=== PATIENT | male | born 1955 | race African-American/Black ===

== ENCOUNTER 2017-06-21 03:02 | Observation (INO) | payer OTHER ==
[~2017-06-21] VITALS: Ht 175.3 cm; Wt 98.9 kg
[~2017-06-21 03:02] MED LIST: AMOXICILLIN500 MG PO; AMOXIL500 MG PO; ASPIRIN EC81 M1 PO; AUGMENTIN 875-1 EACH PO; AUGMENTIN 875875 MG PO; CIPRO500 M1 PO; CIPROFLOXACIN500 MG PO; Ecotrin PO; FLAGYL 25O MG250 M1 PO; FLOMAX0.4 M1 PO; FOSINOPRIL SODI40 M1 PO; GABAPENTIN400 M2 PO; GLIMEPIRIDE4 MG PO; HUMALOG PEN100 U/ML SC; HUMALOG100 UNIT/1 SC; HUMALOG100 UNIT/2 SC; JANUMET 1000 MG1 TAB PO; LANTUS SOL100 UNIT/1 SC; LEVEMIR 10100 UNITS/ SC; LEVEMIR FL100 UNIT/1 SC; LEVEMIR FLEX100 U/ML SC; LEVEMIR100 U/ML SC; LOPRESSOR50 M1 PO; MEROPENEM1 GM IV; METFORMIN HCL1000 M1 PO; METOPROLOL TART50 MG PO; MIRALAX17 GM PO; NOVOLOG100 U/ML SC; PERCOCET 325 MG1 TA2 PO; PRAVASTATIN SOD80 M2 PO; TOPROL XL50 M2 PO; TYLENOL TAB 32325 MG PO; ULTRAM(MONOGRAP50 MG PO; UNASYN 3000MG3000 MG IV; VANCOMYCIN HC1000 MG IV; VITAMIN D1000 IU PO; VITAMIN D2000 UNIT PO
[2017-06-21 08:24] LABS: ABSOLUTE BASOPHIL COUNT 0 /CUMM (0.0-0.2); ABSOLUTE EOSINOPHIL COUNT 0.1 /CUMM (0.0-0.7); ABSOLUTE GRANULOCYTE CT 2.9 /CUMM (1.4-6.5); ABSOLUTE LYMPH COUNT 2.4 /CUMM (1.2-3.4); ABSOLUTE MONOCYTE COUNT 0.4 /CUMM (0.10-0.60); BASOPHIL % 0.5 % (0.0-2.0); EOSINOPHIL % 2.2 % (0-5); GRANULOCYTE % 49.5 % (42.2-75.2); HEMATOCRIT 42.8 % (42-52); MEAN CORPUSCULAR HGB 26.4 PG (27.0-31.0); MEAN CORPUSCULAR HGB CONC 32.6 G/DL (33.0-37.0); MEAN CORPUSCULAR VOLUME 80.8 FL (80.0-94.0); MEAN PLATELET VOLUME 7.3 FL (7.4-10.4); PLATELET COUNT 331 /CUMM (130-400); RBC DISTRIBUTION WIDTH 14.4 % (11.5-14.5); WHITE BLOOD CELL COUNT 5.9 /CUMM (4.8-10.8)
[2017-06-21 17:40] VITALS: BP 176/94
[2017-06-21] MEDS ORDERED: PERCOCET 5-3251 EACH PO (17:43)
--- NOTE | 2017-06-21 17:50 | Patient Discharge Instructions ---
Discharge Instructions General Discharge Information You were seen/treated for: hypercalcemia You had these procedures: right lower parathyroidectomy Watch for these problems: fever greater than 101 increased pain and swelling redness and drainage from wound No bath, but you may shower: Yes Other wound care: ok to remove dressing on 06/23/[address] strips in place, they will eventually fall off on their own keep wound clean and dry l Diet Continue normal diet: Yes Activity Full Activity/No Limits: Yes Activity Self Limited: Yes Acute Coronary Syndrome Inclusion Criteria At DC or during hospital stay patient has or had the following: Discharge Core Measures Meds if any: Prescribed or Continued at Discharge Meds if any: NOT Prescribed or Continued at Discharge Congestive Heart Failure Inclusion Criteria At DC or during hospital stay patient has or had the following: Discharge Core Measures Meds if any: Prescribed or Continued at Discharge Meds if any: NOT Prescribed or Continued at Discharge Cerebrovascular accident Inclusion Criteria At DC or during hospital stay patient has or had the following: Discharge Core Measures Meds if any: Prescribed or Continued at Discharge Meds if any: NOT Prescribed or Continued at Discharge Venous thromboembolism Discharge Core Measures - Per Current guidelines, there needs to be overlap - treatment for the first 5 days of Warfarin therapy. - If discharged on Warfarin prior to 5 days of - overlap therapy, the patient will need to be - assessed for post discharge needs including - *Post discharge parental anticoagulation - *Warfarin and/or parental anticoagulation education - *Follow up date to check INR post discharge Meds if any: Prescribed or Continued at Discharge Note: Overlap Therapy is Warfarin and Anticoagulant Meds if any: NOT Prescribed or Continued at Discharge
[2017-06-21 19:35] VITALS: BP 148/84
--- NOTE | 2017-06-21 21:40 | Admission Core Measures ---
Acute Coronary Syndrome (CM) ACS Core Measures Acute Coronary Syndrome Diagnosis No Congestive Heart Failure (NEW) CHF Core Measures Congestive Heart Failure Diagnosis No Cerebrovascular Accident (NEW) CVA Core Measures CVA/TIA Diagnosis No Venous Thromboembolism VTE Core Mai (View Protocol) VTE Risk Factors Surgery No Mechanical VTE Prophylaxis d/t N/A MechProphylax Ordered No VTE Pharm Prophylaxis d/t NA PharmProphylax ordered Problem List As ranked by this Provider includes Assessment & Plan 1. Hyperparathyroidism HOME MEDS Home Med List Aspirin (Ecotrin*) 81 MG TABLET.DR 1 TAB PO DAILY HEART HEALTH (Reported) Cholecalciferol (Vitamin D3) (Vitamin D) 2,000 UNIT CAPSULE 1 CAP PO DAILY SUPPLEMENT (Reported) Fosinopril Sodium 40 MG TABLET 1 TAB PO DAILY BP (Reported) Gabapentin 400 MG CAPSULE 1 CAP PO TID NERVE PAIN (Reported) Metoprolol Tartrate (Lopressor) 50 MG TABLET 1 TAB PO DAILY HEART/BP ( Reported) Oxycodone HCl/Acetaminophen (Percocet 5-325 MG Tablet) 5 MG-325 MG TABLET 1 TAB PO Q4-6 PRN postop pain Pravastatin Sodium 80 MG TABLET 1 TAB PO DAILY HEART HEALTH (Reported) Tamsulosin HCl (Flomax) 0.4 MG CAP.ER.24H 1 CAP PO DAILY URINARY DIFFICULTY ( Reported)
--- NOTE | 2017-06-21 21:42 | PN- General Surgery ---
Subjective Subjective: Post op check: POD 0, s/p parathyroidectomy, right lower lobe. Patient presently without complaints. States he has some mild throat discomfort. Is able to swallow. Is able to speak. No complaints of headache, blurry vision. No complaints of chest pain, shortness of breath, and difficulty breathing. No nausea or vomitting, tolerating clear liquid diet. Objective Vital Signs and I&Os Vital Signs Date Time Temp Pulse Resp B/P B/P Pulse O2 O2 Flow FiO2 Mean Ox Delivery Rate 06/21 2050 72 162/82 06/21 1935 97.5 63 12 148/84 94 Room Air 06/21 1740 98.0 64 16 176/94 96 Room Air Room Air Intake & Output 06/21 1600 06/21 0800 06/21 0000 06/20 1600 06/20 0806/20 0000 Intake Total Output Total Balance Patient 209 lb Weight Physical Exam: General: Alert and oriented x3, no acute distress Cardiac: RRR, s1s2 Pulm: CTA bialterally Abd: Soft, non-tender, non-distended Extremities: Moves all extremities, distal sensation grossly intact. Chronic nonhealing wound to right foot, stable. Skin warm. Bilateral calves soft and non-tender Surgical site: Neck. Dressing dry and intact. No evidence of hematoma. Trachea midline. No JVD. Neck supple. Voice strong. Swallow intact. Assessment/Plan Assessment/Plan This is a 61 year old male, PMH significant for htn, iddm, cad s/p stents, hyperparathyroidism. He is presently POD 0 s/p RLL parathyroidectomy -Keep trach set at bedside -No post op abx per Dr. Valentino -Continue clear liquid diet for tonight -Insulin sliding scale for coverage -Advance to regular diet as tolerated tomorrow am -po pain medications as needed -resume home meds -Follow labs: Calcium and albumin, next set due at 0100 -Anticipate dc to home tomorrow Will discuss with Dr. Valentino Core Measures Venous Thromboembolism VTE Risk Factors Surgery No Mechanical VTE Prophylaxis d/t N/A MechProphylax Ordered No VTE Pharm Prophylaxis d/t NA PharmProphylax ordered
[2017-06-21 22:30] VITALS: BP 162/82
[2017-06-22] VITALS: BP 140/76
[2017-06-22 04:10] VITALS: BP 140/78
[2017-06-22 08:00] VITALS: BP 114/80
--- NOTE | 2017-06-22 08:28 | PN- General Surgery ---
See Addendum Subjective Subjective: Awake, alert Sitting up eating breakfast Tolerating regular diet - no difficulty swallowing No complaints of headache or blurry vision Pain is well controlled with medication Objective Vital Signs and I&Os Vital Signs Date Time Temp Pulse Resp B/P B/P Pulse O2 O2 Flow FiO2 Mean Ox Delivery Rate 06/22 0410 98.4 70 20 140/78 97 06/22 0000 98.6 73 20 140/76 95 06/21 2230 98.4 72 19 162/82 Room Air 06/21 2050 72 162/82 06/21 1935 97.5 63 12 148/84 94 Room Air 06/21 1740 98.0 64 16 176/94 96 Room Air Room Air Intake & Output 06/22 1600 06/22 0800 06/22 0000 06/21 1600 06/21 0800 06/21 0000 Intake Total 240 240 Output Total 700 Balance 240 -460 Intake, Oral 240 240 Output, Urine 700 Patient 218 lb Weight Weight Bed scale Measurement Method Physical Exam: afebrile, vss General: alert and oriented times three Chest: clear bilaterally, RRR Abd: soft, good bs Neck: soft, supple, nontender, no swelling, good swallow ability, no edema Wd: dressing clean and dry Current Medications: Current Medications Sig/Nathan Start time Last Medication Dose Route Stop Time Status Admin Acetaminophen 650 MG Q6P PRN 06/21 1845 AC PO Aspirin Buffered 81 MG DAILY 06/22 1000 DC PO Aspirin Buffered 81 MG DAILY 06/22 1000 AC PO Cefazolin Sodium 2,000 MG ONCE 06/21 0000 DC IV 06/219 Docusate Sodium 100 MG BID 06/210 AC 06/21 PO 2050 Gabapentin 400 MG TID 06/21 2199 DC PO Hydromorphone HCl 2 MG .STK-MED ONE 06/21 2027 DC IM 06/21 2028 Insulin Human Regular 0 TIDAC/HS 06/21 1700 AC SC Lisinopril 40 MG DAILY 06/22 1000 DC PO Lisinopril 40 MG DAILY 06/21 1900 AC 06/21 PO 2050 Metoprolol Tartrate 50 MG DAILY 06/22 1000 DC PO Metoprolol Tartrate 50 MG DAILY 06/22 1000 AC PO Morphine Sulfate 2 MG Q1P PRN 06/21 1845 AC IV Omeprazole 40 MG DAILY AC 06/22 0700 AC 06/22 PO 0644 Ondansetron HCl 4 MG Q6P PRN 06/21 1845 AC IV Oxycodone/ 1 TAB Q4P PRN 06/21 1845 AC Acetaminophen PO Oxycodone/ 2 TAB Q4P PRN 06/21 1845 AC 06/22 Acetaminophen PO 0645 Pravastatin Sodium 80 MG DAILY 06/22 1000 DC PO Pravastatin Sodium 80 MG DAILY 06/22 1000 AC PO Tamsulosin HCl 0.4 MG DAILY 06/22 1000 DC PO Tamsulosin HCl 0.4 MG DAILY 06/22 1000 AC PO Results Last 48 Hours of Labs: Laboratory Tests 06/22 06/21 06/21 06/21 06/21 0155 1700 1546 1526 1349 Chemistry Calcium (8.4 - 10.2 mg/dL) 10.2 10.1 Albumin (3.5 - 5.0 g/dL) 3.8 3.4 L PTH Intact (18.4 - 80.1 pg/ML) 23.5 109.8 H 179.5 H 06/21 0758 Chemistry PTH Intact (18.4 - 80.1 pg/ML) 125.2 H Hematology CBC w Diff NO MAN DIFF REQ WBC (4.8 - 10.8 /CUMM) 5.9 RBC (4.70 - 6.10 /CUMM) 5.30 Hgb (14.0 - 18.0 G/DL) 14.0 Hct (42 - 52 %) 42.8 MCV (80.0 - 94.0 FL) 80.8 MCH (27.0 - 31.0 PG) 26.4 L MCHC (33.0 - 37.0 G/DL) 32.6 L RDW (11.5 - 14.5 %) 14.4 Plt Count (130 - 400 /CUMM) 331 MPV (7.4 - 10.4 FL) 7.3 L Gran % (42.2 - 75.2 %) 49.5 Lymphocytes % (20.5 - 51.1 %) 40.7 Monocytes % (1.7 - 9.3 %) 7.1 Eosinophils % (0 - 5 %) 2.2 Basophils % (0.0 - 2.0 %) 0.5 Absolute Granulocytes (1.4 - 6.5 /CUMM) 2.9 Absolute Lymphocytes (1.2 - 3.4 /CUMM) 2.4 Absolute Monocytes (0.10 - 0.60 /CUMM) 0.4 Absolute Eosinophils (0.0 - 0.7 /CUMM) 0.1 Absolute Basophils (0.0 - 0.2 /CUMM) 0 Assessment/Plan Assessment/Plan 61yo male pod 1 s/p rll parathyroidectomy labs good overnight follow up 9 am labs tolerating regular diet pain well controlled voiding plan to dc home if labwork ok - follow up with Dr Valentino All questions answered Core Measures Venous Thromboembolism VTE Risk Factors Surgery No Mechanical VTE Prophylaxis d/t N/A MechProphylax Ordered No VTE Pharm Prophylaxis d/t NA PharmProphylax ordered
--- NOTE | 2017-06-22 13:22 | Cons- Podiatry ---
General Information and HPI Consulting Request Date of Consult: 06/22/17 Requested By: Chicho WHATLEY,Quincy James History of Present Illness: Beny is a 61-year-old diabetic well known to me for chronic nonhealing ulcerations to his left and right feet. Of note, the patient also has a history of osteomyelitis requiring digital amputations. The patient is currently admitted for observation status post parathyroidectomy. Patient has no new pedal complaints. Allergies/Medications Allergies: Coded Allergies: NO KNOWN ALLERGIES (UNKNOWN 01/29/17) Home Med List: Aspirin (Ecotrin*) 81 MG TABLET.DR 1 TAB PO DAILY HEART HEALTH (Reported) Cholecalciferol (Vitamin D3) (Vitamin D) 2,000 UNIT CAPSULE 1 CAP PO DAILY SUPPLEMENT (Reported) Fosinopril Sodium 40 MG TABLET 1 TAB PO DAILY BP (Reported) Gabapentin 400 MG CAPSULE 1 CAP PO TID NERVE PAIN (Reported) Insulin Lispro (Humalog) 100 UNIT/ML CARTRIDGE INSULIN PUMP- VGO (Reported) Metoprolol Tartrate (Lopressor) 50 MG TABLET 1 TAB PO DAILY HEART/BP ( Reported) Oxycodone HCl/Acetaminophen (Percocet 5-325 MG Tablet) 5 MG-325 MG TABLET 1 TAB PO Q4-6 PRN postop pain Pravastatin Sodium 80 MG TABLET 1 TAB PO DAILY HEART HEALTH (Reported) Tamsulosin HCl (Flomax) 0.4 MG CAP.ER.24H 1 CAP PO DAILY URINARY DIFFICULTY ( Reported) Past History Medical History Blood Transfusion Hx: No Neurological: peripheral neuropathy EENT: NONE Cardiovascular: CAD (status post stents), hypertension, hyperlipidemia, myocardial infarction, STENTS Respiratory: NONE Gastrointestinal: NONE Hepatic: NONE Renal: NONE Musculoskeletal: osteomyelitis of right 1st, 2nd and 3rd toes OTOEMYLITIS OF L 1ST TOE Psychiatric: NONE Endocrine: diabetes Cancer(s): NONE 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 Home Services at Home: None Smoking Status: Unknown If Ever Smoked Functional Ability ADLs Independent: dressing, eating, toileting, bathing. Ambulation: independent IADLs Independent: shopping, housework, finances, food prep, telephone, transportation , medication admin. Review of Systems Review of Systems: Unremarkable except for a noted history of present illness Exam & Diagnostic Data Vital Signs and I&O Vital Signs Date Time Temp Pulse Resp B/P B/P Pulse O2 O2 Flow FiO2 Mean Ox Delivery Rate 06/22 0844 70 120/78 06/22 0843 70 120/78 06/22 0843 70 120/78 06/22 0800 98.6 67 20 114/80 97 Room Air 06/22 0410 98.4 70 20 140/78 97 / 0000 98.6 73 20 140/76 95 06/21 2230 98.4 72 19 162/82 Room Air 06/21 2051 72 162/82 06/21 1935 97.5 63 12 148/84 94 Room Air 06/21 1740 98.0 64 16 176/94 96 Room Air Room Air Intake & Output 06/22 1600 06/22 0800 06/22 0000 06/21 1600 06/21 0800 06/21 0000 Intake Total 240 240 Output Total 700 Balance 240 -460 Intake, Oral 240 240 Output, Urine 700 Patient 218 lb Weight Weight Bed scale Measurement Method Physical Exam: Dressing right foot clean dry and intact. Pain with deep palpation bilateral lower extremities. No ascending cellulitis identified Assessment/Plan Assessment/Plan Chronic ulceration plantar right foot. Continue with Xeroform and dry sterile dressing. Will follow-up the patient in the wound center as an outpatient. Consult Acknowledgment - Thank you for your consult request. Attending MD Review Statement Attending Statement Attending MD Statement: examined this patient
--- NOTE | 2017-06-22 13:30 | Operative Report ---
Operative/Inv Procedure Report Surgery Date: 06/21/17 Name of Procedure: Excision of right inferior parathyroid adenoma Pre-Operative Diagnosis: Primary hyperparathyroidism Post-Operative Diagnosis: Same Estimated Blood Loss: scant Surgeon/Feeder Worker Power Unit Operator: Chicho WHATLEY,Quincy ARIZA Anesthesia: general endotracheal tube Operative/Procedure Note Note: Patient was placed on the OR table supine, over the thyroid bar, after successful induction of general anesthesia and the timeouts, and setting up the NIMS electrodes for monitoring, the patient's neck from chin to chest were clipped prepped and draped in the usual sterile fashion. A PTH level was drawn at this time. We had already marked a skin crease near the cricoid in Same Day, and then infiltrated local anesthetic and then made this incision with a 15 blade, extending within the medial borders of the sternocleidomastoid muscles, and this incision was slightly off centeri favoring the right. The incision was deepened through the subcutaneous fat and subplatysmal flaps, preserving the underlying anterior jugular veins, were made superiorly to the thyroid cartilage and inferiorly not quite to the sternal notch. The midline was identified between the strap muscles and opened vertically and then using an Allis clamp first, the sternohyoid and then the sternal thyroid muscles were and then retracted laterally to the right, off the thyroid towards the carotid sheath, at this point the dissection was continued using the Harmonic scalpel. At that deep inferior lateral aspect of the lower pole, extent we searched for the parathyroid gland/adenoma I saw a rounded kidney-shaped nodule surrounded by fat, about 2 cm, we gently dissected circumferentially preserving the blood supply, also avoiding the recurrent nerve which was close here, and then before excising we had anesthesia draw another PTH, then we excised it and sent it to pathology, and carlos another level in 10 min. The highest preexcision level was 179.5, then it dropped to 23.5 after, more than 80%, indicating success. So we checked for hemostasis and then closed by first reapproximating the strap muscles over the trachea in the middle paying care not to injure those jugular veins on either side, and then the platysma was reapproximated with a running 3- 0 Vicryl suture as well, then the skin was reapproximated with a running subcuticular 4-0 Biosyn suture followed by Mastisol Steri-Strips Telfa and Tegaderm. Estimated blood loss was minimal lap and sponge counts were correct wound expectancy was clean, IV fluids crystalloid, complications none, patient tolerated the procedure well was awakened extubated and returned to the recovery room in satisfactory condition where once more awake, was able to phonate without any significant hoarseness.
[2017-06-22 14:26] VITALS: BP 110/72
== END 2017-06-22 14:10 ==
LOC: STS 03:02 → PACUH 16:32 → 2NB 16:32 → ENRESERV 17:04 → 2NB 18:21 → ENPENDDIS 06-22 11:26 → 2NB 06-22 14:10
PROVIDERS: Surgery
DX: D35.1 Benign neoplasm of parathyroid gland (principal); E21.0 Primary hyperparathyroidism; E11.42 Type 2 diabetes mellitus with diabetic polyneuropathy; E11.65 Type 2 diabetes mellitus with hyperglycemia; Z79.4 Long term (current) use of insulin; I10 Essential (primary) hypertension; E78.00 Pure hypercholesterolemia, unspecified; I25.2 Old myocardial infarction; Z87.891 Personal history of nicotine dependence; Z79.82 Long term (current) use of aspirin; Z89.412 Acquired absence of left great toe; Z89.411 Acquired absence of right great toe
CPT/HCPCS: 6040; 36415; 93005; 93010; G0378; J0131; J0690; J1815; J2250; J2405

== ENCOUNTER 2017-07-29 13:23 | Inpatient (IN) | payer OTHER ==
[~2017-07-29] VITALS: Ht 175.3 cm; Wt 98.5 kg
[~2017-07-29 13:23] MED LIST changes: +PERCOCET 5-3251 EACH PO
[2017-07-29 14:15] LABS: ABSOLUTE BASOPHIL COUNT 0 /CUMM (0.0-0.2); ABSOLUTE EOSINOPHIL COUNT 0.1 /CUMM (0.0-0.7); ABSOLUTE GRANULOCYTE CT 5.5 /CUMM (1.4-6.5); ABSOLUTE LYMPH COUNT 2.6 /CUMM (1.2-3.4); ABSOLUTE MONOCYTE COUNT 0.8 /CUMM (0.10-0.60); BASOPHIL % 0.3 % (0.0-2.0); EOSINOPHIL % 1.4 % (0-5); GRANULOCYTE % 60.6 % (42.2-75.2); HEMATOCRIT 42.3 % (42-52); MEAN CORPUSCULAR HGB 26.5 PG (27.0-31.0); MEAN CORPUSCULAR HGB CONC 32.9 G/DL (33.0-37.0); MEAN CORPUSCULAR VOLUME 80.5 FL (80.0-94.0); MEAN PLATELET VOLUME 6.7 FL (7.4-10.4); PLATELET COUNT 507 /CUMM (130-400); RBC DISTRIBUTION WIDTH 13.4 % (11.5-14.5); RED BLOOD CELL CT 5.26 /CUMM (4.70-6.10)
[2017-07-29 14:17] LABS: PT 14.1 SEC (9.4-12.5)
--- NOTE | 2017-07-29 15:43 | RADIOLOGY REPORT ---
EXAMINATION: XR FOOT, LEFT CLINICAL INFORMATION: Osteomyelitis left foot. COMPARISON: 02/02/2017 TECHNIQUE: 2 views of the left foot. FINDINGS: Postsurgical changes from prior amputation of the 1st ray at the level of the mid 1st metatarsal. There is dressing overlying the 2nd and 3rd digits. Soft tissue swelling of the 2nd digit, with foci of lucency within the soft tissues suggesting air. There is apparent irregularity of the tip of the 2nd distal phalanx, as seen on the lateral projection, which may be related to overlapping densities, or represent osteomyelitis. No definite air is identified in the soft tissues of the 3rd digit. More proximally, no acute findings are seen. Dorsal spurring at the talonavicular joint. IMPRESSION: 1. Soft tissue dressing overlying the 2nd and 3rd digits limiting evaluation. 2. Soft tissue swelling of the 2nd digit, with the lucencies suggesting air in the soft tissues. Apparent irregularity of the tip of the 2nd distal phalanx, which could be related to osteomyelitis or could be related to overlapping densities. Further evaluation with MRI as clinically warranted.
--- NOTE | 2017-07-29 16:38 | ED ANKLE/FOOT INJURY COMPLAINT ---
History of Present Illness General Chief Complaint: General Adult Stated Complaint: SIB DR VALERIO, INFECTION TO LEFT FOOT Source: patient, family, old records, dr duque Exam Limitations: no limitations Vital Signs & Intake/Output Vital Signs & Intake/Output Vital Signs Date Time Temp Pulse Resp B/P B/P Pulse O2 O2 Flow FiO2 Mean Ox Delivery Rate 07/30 0827 136/86 07/30 0826 60 136/86 07/29 2250 136/86 07/29 2249 136/86 07/29 2032 97.8 60 16 136/86 97 Room Air 07/29 2024 Room Air 07/29 1711 97.2 65 18 117/62 99 Room Air 07/29 1710 9 Room Air 07/29 1332 96.2 70 18 145/62 95 Room Air ED Intake and Output 07/30 0000 07/29 1200 Intake Total 240 Output Total Balance 240 Intake, Oral 240 Patient 216 lb Weight Weight Reported by Patient Measurement Method Allergies Coded Allergies: NO KNOWN ALLERGIES (UNKNOWN 01/29/17) Reconcile Medications Aspirin (Ecotrin*) 81 MG TABLET.DR 1 TAB PO DAILY HEART HEALTH (Reported) Cholecalciferol (Vitamin D3) (Vitamin D) 2,000 UNIT CAPSULE 1 CAP PO DAILY SUPPLEMENT (Reported) Fosinopril Sodium 40 MG TABLET 1 TAB PO DAILY BP (Reported) Gabapentin 400 MG CAPSULE 1 CAP PO TID NERVE PAIN (Reported) Insulin Lispro (Humalog) 100 UNIT/ML CARTRIDGE INSULIN PUMP- VGO (Reported) Metoprolol Tartrate (Lopressor) 50 MG TABLET 1 TAB PO DAILY HEART/BP ( Reported) Oxycodone HCl/Acetaminophen (Percocet 5-325 MG Tablet) 5 MG-325 MG TABLET 1 TAB PO Q4-6 PRN postop pain Pravastatin Sodium 80 MG TABLET 1 TAB PO DAILY HEART HEALTH (Reported) Tamsulosin HCl (Flomax) 0.4 MG CAP.ER.24H 1 CAP PO DAILY URINARY DIFFICULTY ( Reported) Triage Note: 61 Y/O MALE STATES DR DUQUE SENT HIM TO ED FOR SURGERY: AMPUTATION OF LEFT 2ND TOE. PT REPORTS "IT HAS BEEN INFECTED ALL WEEK". C/O "FEVER AND CHILLS". DRESSING IN PLACE FROM WOUND CENTER. PT REPORTS LAST PO INTAKE 0800 TODAY - "2 EGGS AND TEA". Triage Nurses Notes Reviewed? yes Occurred: last week Duration: week(s): (1), constant Timing: recent history Severity: moderate Severity Numbers: 5 Pain/Injury Location: Left: 2nd toe. Method of Injury: twisted No Modifying Factors: none Associated Symptoms: swelling, redness, discharge HPI: 61-year-old male with history of poorly controlled diabetes coronary artery disease presents sent in by a wallpaper hanger helper Dr. Duque for evaluation and admission for osteomyelitis of the left foot. Patient reports subjective subjective fever chills for the past 1 week worsening pain to his foot. He was being treated for an ulcer to that toe area denies any new injury or trauma. He was sent in for amputation of that toe. He has a history of osteomalacia is in the past of both feet requiring previous dictations No nausea no vomiting (Oliver Flores) Past History Travel History Traveled to [place] past 21 day No Medical History Any Pertinent Medical History? 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 No (Oliver Flores) Review of Systems Review of Systems Constitutional: Reports: see HPI. Comments Review of systems: See HPI, All other systems negative. Constitutional, chills , fever, HEENT: no sore throat no congestion Cardiovascular: No chest pain , Skin: no rashes, no change in skin Respiratory: No dyspnea no cough no sputum GI: No nausea no vomiting, no diarrhea, : No dysuria Muscle skeletal: No joint pain, no back pain Neurologic: , no headache Heme/endocrine: No bruising (Oliver Flores) Physical Exam Physical Exam General Appearance: well developed/nourished, alert, awake Leg/Knee/Thigh Left: normal range of motion Comments: Well-developed well-nourished patient in no apparent distress. HEENT: Atraumatic, extraocular motion intact Neck: Supple, FROM Back: FROM Cardiovascular: Regular rate and rhythms no murmur Respiratory: No respiratory distress. Patient speaking in full complete sentences. Breath sounds clear to auscultation bilaterally: NO W/R/R Extremities: Dressing in place of the left foot, the rest of the foot and leg are atraumatic no edema, full range of motion Neuro: awake, alert, and oriented to person, place and time. There were no obvious focal neurologic abnormalities. Skin: Warm & dry;No appreciable rash on exposed skin Psych: Mood affect normal, normal memory normal judgment. (Theresa ARIZA,Oliver) Progress Differential Diagnosis: cellulitis, gout, fracture, dislocation, sprain, contusion, compartmental syndrome, osteomyeltisis Plan of Care: Orders Procedure Date/time Status BASIC ELECTROLYTES PLUS BUN&CR 07/31 0600 Active Consistent Carbohydrate 2 07/30 L Active Consistent Carbohydrate 3 07/30 B Complete Change service to 07/30 0910 Active Change service to 07/30 0852 Active CBC WITHOUT DIFFERENTIAL 07/30 0600 Complete BASIC ELECTROLYTES PLUS BUN&CR 07/30 0600 Complete Consistent Carbohydrate 2 07/29 D Complete Weight 07/29 2018 Active Vital Signs 07/29 2018 Active Teach/Educate 07/29 2017 Active Pain Treatment and Response 07/29 2017 Active Nutritional Intake, Monitor 07/29 2017 Active Isolation 07/29 2018 Active Intake & Output 07/29 2018 Active Patient Care Conference 07/29 2018 Active Activity/Ambulation 07/29 2018 Active PT Evaluate & Treat 07/29 1843 Active Pathway - chart 07/29 1843 Active House Staff 07/29 1843 Active Code Status 07/29 1843 Active EXTREMETIES OR SPEC 07/29 1806 Active Patient Data 07/29 1750 Active Lab Add-on Test 07/29 1744 Active ED Holding Orders 07/29 1706 Active Admit to inpatient 07/29 1706 Active Vital Signs 07/29 1706 Active Code Status 07/29 1706 Complete Admit to inpatient 07/29 1705 Active Intake & Output 07/29 1658 Active Saline Lock 07/29 1345 Active PROTHROMBIN TIME 07/29 1345 Complete COMPREHENSIVE METABOLIC PANEL 07/29 1345 Complete CBC WITHOUT DIFFERENTIAL 07/29 1345 Complete EKG 07/29 1345 Active TYPE & SCREEN (NOT X-MATCH) 07/29 1345 Complete FingerStick- Glucose 07/29 UNK Active Current Medications Sig/Nathan Start time Last Medication Dose Stop Time Status Admin Pravastatin Sodium 80 MG 1700 07/30 1700 AC (Pravachol) Insulin Detemir 20 UNITS BID 07/30 1000 AC (Levemir) Insulin Aspart 0 TIDAC 07/30 0800 AC 07/30 (NovoLOG) 0827 Ampicillin Sodium/ 1,500 MG Q6 07/29 2359 AC 07/30 Sulbactam Sodium 0515 (Unasyn) Sodium Chloride 100 ML (Normal Saline 0.9%) Insulin Aspart 0 AT BEDTIME 07/29 2245 AC 07/29 (NovoLOG) 2243 Heparin Sodium 5,000 UNIT Q8 07/29 2200 AC 07/30 (Porcine) 0515 Metoprolol Tartrate 50 MG DAILY 07/30 1999 AC 07/30 (Lopressor) 0826 Acetaminophen 650 MG Q4P PRN 07/29 1915 AC (Tylenol) Aspirin Buffered 81 MG DAILY 07/29 1900 AC 07/30 (Ecotrin) 0827 Gabapentin 400 MG TID 07/29 190 AC 07/30 (Neurontin) 0827 Tamsulosin HCl 0.4 MG DAILY 07/29 1900 AC 07/30 (Flomax) 0827 Oxycodone/ 1 TAB Q4-6 PRN 07/29 1845 AC Acetaminophen (Percocet) Laboratory Tests 07/30/17 0555: Anion Gap 10, Estimated GFR > 60, BUN/Creatinine Ratio 21.7, CBC w Diff NO MAN DIFF REQ, RBC 4.62 L, MCV 80.6, MCH 26.5 L, MCHC 32.8 L, RDW 13.2, MPV 7.3 L , Gran % 58.2, Lymphocytes % 31.0, Monocytes % 9.2, Eosinophils % 1.2, Basophils % 0.4, Absolute Granulocytes 4.4, Absolute Lymphocytes 2.4, Absolute Monocytes 0.7 H, Absolute Eosinophils 0.1, Absolute Basophils 0 07/29/17 1355: Anion Gap 15, Estimated GFR 48 L, BUN/Creatinine Ratio 18.7, Glucose 149 H, Calcium 9.9, Total Bilirubin 0.4, AST 11 L, ALT 19 L, Alkaline Phosphatase 96, Total Protein 8.6 H, Albumin 4.2, Globulin 4.4 H, Albumin/Globulin Ratio 1.0 L, PT 14.1 H, INR 1.29 H, CBC w Diff NO MAN DIFF REQ, RBC 5.26, MCV 80.5, MCH 26.5 L, MCHC 32.9 L, RDW 13.4, MPV 6.7 L, Gran % 60.6, Lymphocytes % 28.7, Monocytes % 9.0, Eosinophils % 1.4, Basophils % 0.3, Absolute Granulocytes 5.5, Absolute Lymphocytes 2.6, Absolute Monocytes 0.8 H, Absolute Eosinophils 0.1, Absolute Basophils 0 Microbiology 07/29 1805 EXTREMITIE: Gross Specimen Examination - RECD 07/29 1805 EXTREMITIE: Gram Stain - RECD XRAY AND LABS ORDERED FROM TRIAGE I [facility] WITH DR DUQUE- WHO IS WAITING TO TAKE HIM TO THE OR ( PT WAS IN THE WAITING ROOM) WHEN HE CALLED. I BROUGHT HIM, BACK, HE WOULD LIKE THE PT ADMITTED TO THE MEDICINE TEAM I D/W THE PT AND FAMILY HIS LABS AND XRAY FINDINGS. THEY ARE AWARE OF PLAN TO THE PATIENT: NATHAN MOLINA PRESENT AGE: 61 PATIENT ACCOUNT NO: [id number] : 59 LOCATION: [facility] ORDERING PHYSICIAN: Brien Sommer DO SERVICE DATE: 07/29/17 EXAM TYPE: RAD - XRY-FOOT TWO VIEWS, LEFT EXAMINATION: XR FOOT, LEFT CLINICAL INFORMATION: Osteomyelitis left foot. COMPARISON: 02/02/2017 TECHNIQUE: 2 views of the left foot. FINDINGS: Postsurgical changes from prior amputation of the 1st ray at the level of the mid 1st metatarsal. There is dressing overlying the 2nd and 3rd digits. Soft tissue swelling of the 2nd digit, with foci of lucency within the soft tissues suggesting air. There is apparent irregularity of the tip of the 2nd distal phalanx, as seen on the lateral projection, which may be related to overlapping densities, or represent osteomyelitis. No definite air is identified in the soft tissues of the 3rd digit. More proximally, no acute findings are seen. Dorsal spurring at the talonavicular joint. IMPRESSION: 1. Soft tissue dressing overlying the 2nd and 3rd digits limiting evaluation. 2. Soft tissue swelling of the 2nd digit, with the lucencies suggesting air in the soft tissues. Apparent irregularity of the tip of the 2nd distal phalanx, which could be related to osteomyelitis or could be related to overlapping densities. Further evaluation with MRI as clinically warranted. DICTATED BY: Jose Alejandro Maxwell MD DATE/TIME DICTATED:07/29/171453 RAIL CAR PAINTER/SANDBLASTER:[id number] DATE/TIME TRANSCRIBED:07/29/171453 CONFIDENTIAL, DO NOT COPY WITHOUT APPROPRIATE AUTHORIZATION. <Electronically signed in Other Vendor System> SIGNED BY: Jose Alejandro Maxwell MD [id number] Diagnostic Imaging: Viewed by Me: Radiology Read. Discussed w/RAD: Radiology Read. Initial ED EKG: NSR AT 70, 1ST DEGREE BLOCK, NO ACUTE ST SEG CHANGES, NORMAL AXIS Prior EKG: unchanged (Oliver Flores) Departure Departure Time of Disposition: 1655 Disposition: STILL A PATIENT Condition: Stable Clinical Impression Primary Impression: Osteomyelitis Referrals: Patient Has No Primary Care Dr (PCP/Family) Departure Forms: Customer Survey General Discharge Information Admission Note Spoke With: Rangel Del Toro MD Documentation of Exam: Documentation of any treatments & extenuating circumstances including Concerns Regarding Discharge (functional status, medication knowledge or non-compliance, living conditions, etc.) that warrant an admission rather than observation: PODIATRY CONSULT, ID CONSULT, TREND LABS AND CULTURES, IV ABX,PREMATURE DISCHARGE WOULD BEMEDICALLY HARMFUL (Oliver Flores) PA/PUBLIC SPEAKING PROFESSOR Co-Sign Statement Statement: ED Attending supervision documentation- [] I saw and evaluated the patient. I have also reviewed all the pertinent lab results and diagnostic results. I agree with the findings and the plan of care as documented in the PA's/PUBLIC SPEAKING PROFESSOR's documentation. [X] I have reviewed the ED Record and agree with the PA's/PUBLIC SPEAKING PROFESSOR's documentation. [] Additions or exceptions (if any) to the PAs/PUBLIC SPEAKING PROFESSOR's note and plan are summarized below: [] (Elizabeth WHATLEY,Destinee)
--- NOTE | 2017-07-29 17:08 | History & Physical ---
Jose WHATLEY,[facility] 07/29/17 1398: General Information and HPI History of Present Illness: Mr. Mathis is a 61-year-old male with past medical history of coronary artery disease status post DC and stents in [address] 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 Morocho, and primary hyperparathyroidism who presents with a left foot infection. The patient is followed by Dr. Mcdonough for his foot care. A week ago , he went to Dr. Mcdonough because he was having pain in his left foot. Dr. Mcdonough took the nail off and found an abscess. He was prescribed amoxicillin and has taken the antibiotic. His symptoms have progressed to having fever, chills, and night sweats. He then had a scheduled appointment today with Dr. Mcdonough who sent him to the ER for surgery. Patient denies any chest pain, shortness of breath, trace of breath on exertion climbing stairs, abdominal pain , nausea, vomiting, diarrhea, or dysuria. Patient is a former smoker and denies alcohol or recreational drug use. Allergies/Medications Allergies: Coded Allergies: NO KNOWN ALLERGIES (UNKNOWN 01/29/17) Home Med list Aspirin (Ecotrin*) 81 MG TABLET.DR 1 TAB PO DAILY HEART HEALTH (Reported) Cholecalciferol (Vitamin D3) (Vitamin D) 2,000 UNIT CAPSULE 1 CAP PO DAILY SUPPLEMENT (Reported) Fosinopril Sodium 40 MG TABLET 1 TAB PO DAILY BP (Reported) Gabapentin 400 MG CAPSULE 1 CAP PO TID NERVE PAIN (Reported) Insulin Lispro (Humalog) 100 UNIT/ML CARTRIDGE INSULIN PUMP- VGO (Reported) Metoprolol Tartrate (Lopressor) 50 MG TABLET 1 TAB PO DAILY HEART/BP ( Reported) Oxycodone HCl/Acetaminophen (Percocet 5-325 MG Tablet) 5 MG-325 MG TABLET 1 TAB PO Q4-6 PRN postop pain Pravastatin Sodium 80 MG TABLET 1 TAB PO DAILY HEART HEALTH (Reported) Tamsulosin HCl (Flomax) 0.4 MG CAP.ER.24H 1 CAP PO DAILY URINARY DIFFICULTY ( Reported) Past History Travel History Traveled to [place] past 21 day No Medical History Neurological: peripheral neuropathy EENT: NONE Cardiovascular: CAD (status post stents), hypertension, hyperlipidemia, myocardial infarction, STENTS Respiratory: NONE Gastrointestinal: NONE Hepatic: NONE Renal: NONE Musculoskeletal: osteomyelitis of right 1st, 2nd and 3rd toes OTOEMYLITIS OF L 1ST TOE Psychiatric: NONE Endocrine: diabetes Cancer(s): NONE 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 Ambulation: independent IADLs Independent: shopping, housework, finances, food prep, telephone, transportation , medication admin. Review of Systems Review of Systems Constitutional: Reports: no symptoms. EENTM: Reports: no symptoms. Cardiovascular: Reports: no symptoms. Respiratory: Reports: no symptoms. GI: Reports: no symptoms. Genitourinary: Reports: no symptoms. Musculoskeletal: Reports: see HPI. Skin: Reports: no symptoms. Neurological/Psychological: Reports: no symptoms. Hematologic/Endocrine: Reports: no symptoms. Immunologic/Allergic: Reports: no symptoms. All Other Systems: Reviewed and Negative Exam & Diagnostic Data Last 24 Hrs of Vital Signs/I&O Vital Signs Date Time Temp Pulse Resp B/P B/P Pulse O2 O2 Flow FiO2 Mean Ox Delivery Rate 07/29 1711 97.2 65 18 117/62 99 Room Air 07/29 1710 9 Room Air 07/29 1332 96.2 70 18 145/62 95 Room Air Intake & Output 07/29 1600 07/29 0800 07/29 0000 Intake Total Output Total Balance Patient 97.976 kg Weight Weight Reported by Patient Measurement Method Physical Exam General Appearance Alert, Oriented X3, Cooperative, No Acute Distress HEENT Atraumatic, PERRLA Cardiovascular Regular Rate, Normal S1, Normal S2 Lungs Clear to Auscultation Abdomen Normal Bowel Sounds, Soft, No Tenderness Extremities Left foot wrapped, exam deferred. Last 24 Hrs of Labs/[place]: Laboratory Tests 07/29/17 1355: Anion Gap 15, Estimated GFR 48 L, BUN/Creatinine Ratio 18.7, Glucose 149 H, Calcium 9.9, Total Bilirubin 0.4, AST 11 L, ALT 19 L, Alkaline Phosphatase 96, Total Protein 8.6 H, Albumin 4.2, Globulin 4.4 H, Albumin/Globulin Ratio 1.0 L, PT 14.1 H, INR 1.29 H, CBC w Diff NO MAN DIFF REQ, RBC 5.26, MCV 80.5, MCH 26.5 L, MCHC 32.9 L, RDW 13.4, MPV 6.7 L, Gran % 60.6, Lymphocytes % 28.7, Monocytes % 9.0, Eosinophils % 1.4, Basophils % 0.3, Absolute Granulocytes 5.5, Absolute Lymphocytes 2.6, Absolute Monocytes 0.8 H, Absolute Eosinophils 0.1, Absolute Basophils 0 Assessment/Plan Assessment: Mr. Mathis is a 61-year-old male with past medical history of coronary artery disease status post DC and stents in [address] 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 Morocho, and primary hyperparathyroidism who presents with a left foot infection. On presentation, vital signs were T 96.2, HR 70, RR 18, BP 145/60, saturating 95 % on room air. Laboratories were significant for platelets 507, BUN 28, creatinine 1.5 (baseline 1.7). Foot x-ray showed a soft tissue swelling of the second digit lucency suggesting air in the soft tissues which could be related to osteomyelitis. He will be admitted to general medicine and treated for the following problems: 1. Diabetic foot infection with possible osteomyelitis 2. Thrombocytosis #Diabetic foot infection with wet gangrene and possible osteomyelitis: The patient was sent in by Dr. Mcdonough for surgery related to his diabetic foot infection. X-ray shows possible bone involvement. He is going to the OR [facility] for open partial ray resection left foot. RCRI score 2, 6.6% risk of major cardiac event. -Follow-up postoperative note for Dr. Mcdonough -ESR and CRP -Follow cultures -Follow antibiotics per Dr. Mcdonough #Thrombocytosis: Likely reactive -Continue to monitor #Chronic medical problems: -Hold insulin pump, consult endocrinology -Detemir plus ISS -Continue home medications DVT prophylaxis with heparin Consistent carbohydrate 1 diet Full code As Ranked By This Provider Problem List: 1. Osteomyelitis Core Measures/Misc (02/03) Acute Coronary Syndrome ACS Diagnosis: No Congestive Heart Failure Congestive Heart Failure Diagnosis No Cerebrovascular Accident CVA/TIA Diagnosis: No VTE (View Protocol) VTE Risk Factors Age>40 No Mechanical VTE Prophylaxis d/t N/A MechProphylax Ordered No VTE Pharm Prophylaxis d/t NA PharmProphylax ordered Sepsis (View protocol) Sepsis Present: No Rangel Del Toro MD 07/29/17 2011: Attending MD Review Statement Attending Statement Attending MD Statement: examined this patient, discuss w/resident/PA/CORN SHELLER, agreed w/resident/PA/CORN SHELLER, discussed with family, reviewed EMR data (avail), reviewed images, amended to note Attending Assessment/Plan: The patient is a 61 yo male with h/o poorly controlled DM (Hgb A1C 13.3% 06/06) with diabetic neuropathy and ?nephropathy, h/o primary hyperparathyroidism (s/p parathyroidectomy 2017), h/o CAD (?IWMI and stents in 2002 at [facility] in [place]), and BPH who presented in the ED sent for admission by Dr. Mcdonough with a left foot infection. He had been seen 1 week ago and had nail removal and an abscess was noted. He had been placed on oral antibiotics (?Amoxicillin). Infection had progressed and Dr. Mcdonough wishes to take the patient to the OR this evening (suspected osteomyelitis/gangrene). The patient denied fever, chest pain, dyspnea, etc. Had recent negative pharmacologic stress with Dr. Cifuentes ( 07/07) and normal ECHO. He has been followed by Dr. Francis for endocrinology (has insulin pump). He does have a h/o osteomyelitis of both feet requiring digit amputations in the past and is known to Dr. Pfeiffer. Physical Exam: VS: T 97.2, P 70, R 18, BP 145/62-117/62, PO 99% RA HEENT: eyes- PERRLA, EOMI mirlande- moist mucosa w/o lesions Neck: no JVD/bruits Chest: clear Cor: RRR nl S1, S2 w/o murm Abd: BS+, soft, NT, - HSM Ext: S[place] grade 3 ulceration of the left 2nd toe with cellulitis extending 3 cm proximal to the matatarsophalangeal joint with foul smelling discharge- no fluctuance/crepitus (per Dr. Mcdonough exam). Pulses severely diminished bilaterally. Labs- as above Impression/Plan: #Osteomyelitis/Gangrene - left 2nd toe/foot as above. In patient with known PVD/ diabetic neuropathy. Has had prior digit amputations of both feet in past. No fever/chills, etc. Plan: Admit to general medicine- to OR tonight with Dr. Mcdonough for ray amputation. Intraoperative cultures to be obtained. Will start broad spectrum antibiotics per Dr. Mcdonough (Dr. Pfeiffer made aware patient is here) Will need arterial US LE in morning- ID and Vascular consults. #CAD- h/o DC/stents in distant past (2002). No cardiac symptoms (no CP/WHITMORE) and had recent negative pharmacologic stress test with Dr. Cifuentes. Normal EF on ECHO. RCRI is 2=6.6% perioperative risk. Plan: Medically stable for planned surgery. Continue Metoprolol/etc. #DM- as above, poorly controlled based on prior Hgb A1C. Followed by Dr. Francis and on insulin pump at present. Plan: D/C pump as per hospital protocol- Dr. Francis to advise regarding insulin dosing. Follow glucoscans. #CKD- note elevated Cr which has been noted over last year. Most likely related to diabetic nephropathy. Is also on Fosinopril. Plan: Will check OP records. Avoid nephrotoxins/dye. #HL- On Pravastatin. Plan: Continue statin. #BPH- on Tamsulosin. Plan: Continue Tamsulosin. #Chronic Pain/Diabetic Neuropathy- on gabapentin. Plan: Continue Gabapentin and Percocet prn for pain.
--- NOTE | 2017-07-29 17:30 | History & Physical Pre-Op ---
General Information and HPI History of Present Illness: Beny is a 61-year-old male with an extensive past medical history, including poorly controlled diabetes who presented to the wound care center today complaining of pain and swelling to his left foot and fever and chills beginning the end of last week and over this weekend. The patient also admits to feeling general malaise. The patient has a history of osteomyelitis to both the left and right feet, requiring digital amputations and prolonged courses of IV antibiotics. Allergies/Medications Allergies: Coded Allergies: NO KNOWN ALLERGIES (UNKNOWN 01/29/17) Home Med list Aspirin (Ecotrin*) 81 MG TABLET.DR 1 TAB PO DAILY HEART HEALTH (Reported) Cholecalciferol (Vitamin D3) (Vitamin D) 2,000 UNIT CAPSULE 1 CAP PO DAILY SUPPLEMENT (Reported) Fosinopril Sodium 40 MG TABLET 1 TAB PO DAILY BP (Reported) Gabapentin 400 MG CAPSULE 1 CAP PO TID NERVE PAIN (Reported) Insulin Lispro (Humalog) 100 UNIT/ML CARTRIDGE INSULIN PUMP- VGO (Reported) Metoprolol Tartrate (Lopressor) 50 MG TABLET 1 TAB PO DAILY HEART/BP ( Reported) Oxycodone HCl/Acetaminophen (Percocet 5-325 MG Tablet) 5 MG-325 MG TABLET 1 TAB PO Q4-6 PRN postop pain Pravastatin Sodium 80 MG TABLET 1 TAB PO DAILY HEART HEALTH (Reported) Tamsulosin HCl (Flomax) 0.4 MG CAP.ER.24H 1 CAP PO DAILY URINARY DIFFICULTY ( Reported) Past History Medical History Neurological: peripheral neuropathy EENT: NONE Cardiovascular: CAD (status post stents), hypertension, hyperlipidemia, myocardial infarction, STENTS Respiratory: NONE Gastrointestinal: NONE Hepatic: NONE Renal: NONE Musculoskeletal: osteomyelitis of right 1st, 2nd and 3rd toes OTOEMYLITIS OF L 1ST TOE Psychiatric: NONE Endocrine: diabetes Cancer(s): NONE 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 Ambulation: independent IADLs Independent: shopping, housework, finances, food prep, telephone, transportation , medication admin. Review of Systems Review of Systems: Unremarkable except for that noted tissue present illness Exam & Diagnostic Data Last 24 Hrs of Vital Signs/I&O Vital Signs Date Time Temp Pulse Resp B/P B/P Pulse O2 O2 Flow FiO2 Mean Ox Delivery Rate 07/29 1711 97.2 65 18 117/62 99 Room Air 07/29 1710 9 Room Air 07/29 1332 96.2 70 18 145/62 95 Room Air Intake & Output 07/29 1600 07/29 0800 07/29 0000 Intake Total Output Total Balance Patient 216 lb Weight Weight Reported by Patient Measurement Method Physical Exam: Sotelo grade 3 ulceration noted to the left second digit with cellulitis extending 3 cm proximal to the metatarsophalangeal joint. There is probing identified distally with foul smelling discharge no fluctuance or crepitus identified dorsally. Assessment/Plan Assessment/Plan: Gangrene left foot with likely underlying osteomyelitis. Patient will require an open partial ray resection left foot followed by admission to the floor for broad-spectrum IV antibiotics, which can then the talar pending the cultures and sensitivities. As Ranked By This Provider Problem List: 1. Other acute osteomyelitis, left ankle and foot Attending MD Review Statement Attending Statement Attending MD Statement: examined this patient
--- NOTE | 2017-07-29 18:30 | Operative Report ---
Operative/Inv Procedure Report Surgery Date: 07/29/17 Name of Procedure: 1 open incision and drainage deep to the D fashion with exposure of the extensor and flexor tendon and tendon sheath multiple sites left foot 2 amputation second digit left foot 3 intraoperative administration of ankle block anesthesia 4 excisional debridement Pre-Operative Diagnosis: 1 gangrene left second digit 2 osteomyelitis left second digit 3 diabetic peripheral neuropathy Post-Operative Diagnosis: The same Estimated Blood Loss: less than 50ml Surgeon/Per Diem: ELINA DICKERSON DPM Anesthesia: moderate sedation, block Operative/Procedure Note Note: After obtaining informed consent the patient was brought to the operating room and placed on the operating table in the supine position. The patient isn't securely fastened to the operating table utilizing safety belt. After administration of IV sedation, 10 mL of 0.5% Marcaine plain was infiltrated about the patient's left ankle. The left foot and ankle then scrubbed prepped and draped in usual aseptic manner. Attention directed left foot, where a large full-thickness necrotic was identified. A 15 blades utilized sharply revised skin margins. Dissection was then carried down deep to the deep fascia with exposure of the extensor and flexor tendon tension multiple sites left foot. All necrotic nonviable infected tissue sharply evacuated from the wound bed. It was then carried proximally to the capture ligamentous structures at the metatarsophalangeal joint which resection. The digit was then disarticulated and passed from the operative field. Specimen was sent for both microbiologic and pathologic inspection. Nipple was then irrigated 3 L of normal sterile saline infusion 50,000 units of bacitracin. Following this, the foot was redraped and the surgeon's top was changed clean gloves. Any bleeding vessels identified were cauterized or ligated as encountered. Nipple was then packed with half-inch iodoform and 3-0 nylon retention sutures were placed. Foot was then dressed with 4 x 4's Kerlix and Abraham wrap. Patient is noted tolerate both procedure and anesthesia well and the patient was transported from the operating room to recovery with vital signs stable.
[2017-07-29 20:33] VITALS: BP 136/86
--- NOTE | 2017-07-30 07:52 | PN- Housestaff ---
Jose Elias Ricci 07/30/17 0752: Subjective Follow-up For: 1 gangrene left second digit s/p excisional debridement POD 1 2 osteomyelitis left second digit 3 diabetic peripheral neuropathy 4 Uncontrolled diabetes Subjective: No complaint or acute events overnight Fingerstick glucose 255 - 285 Review of Systems Constitutional: Reports: see HPI. Objective Last 24 Hrs of Vital Signs/I&O Vital Signs Date Time Temp Pulse Resp B/P B/P Pulse O2 O2 Flow FiO2 Mean Ox Delivery Rate 07/30 0827 136/86 07/30 0826 60 136/86 07/29 2250 136/86 07/29 2249 136/86 07/29 2033 97.8 60 16 136/86 97 Room Air 07/29 2024 Room Air 07/29 1711 97.2 65 18 117/62 99 Room Air 07/29 1710 9 Room Air 07/29 1332 96.2 70 18 145/62 95 Room Air Intake & Output 07/30 1600 07/30 0800 07/30 0000 Intake Total 440 240 Output Total 650 Balance -210 240 Intake, IV 200 Intake, Oral 240 240 Output, Urine 650 Patient 214 lb 216 lb Weight Weight Bed scale Reported by Patient Measurement Method Physical Exam General Appearance: Alert, Oriented X3, Cooperative, No Acute Distress Cardiovascular: Regular Rate, Normal S1, Normal S2 Lungs: Clear to Auscultation, Normal Air Movement Abdomen: Normal Bowel Sounds, Soft, No Tenderness Extremities: L foot with serosanguinous drainage Current Medications: Current Medications Sig/Nathan Start time Last Medication Dose Route Stop Time Status Admin Acetaminophen 650 MG Q4P PRN 07/29 1915 AC PO Ampicillin Sodium/ 1,500 MG Q6 07/29 2359 AC 07/30 Sulbactam Sodium IV 0515 Sodium Chloride 100 ML Aspirin Buffered 81 MG DAILY 07/29 190 AC 07/30 PO 0827 Gabapentin 400 MG TID 07/29 1900 AC 07/30 PO 0827 Heparin Sodium 5,000 UNIT Q8 07/29 2199 AC 07/30 (Porcine) SC 0515 Insulin Aspart 0 AT BEDTIME 07/30 2200 DC SC Insulin Aspart 0 TIDAC 07/30 0800 AC 07/30 SC 0827 Insulin Aspart 0 TIDAC 07/30 0800 DC SC Insulin Aspart 0 AT BEDTIME 07/29 2245 AC 07/29 SC 2243 Insulin Detemir 20 UNITS BID 07/30 1000 AC SC Insulin Detemir 15 UNITS BID 07/29 2200 DC 07/30 SC 0827 Metoprolol Tartrate 50 MG DAILY 07/30 1999 AC 07/30 PO 0826 Morphine Sulfate 4 MG .STK-MED ONE 07/29 2001 DC IM 07/29 2002 Oxycodone/ 1 TAB Q4-6 PRN 07/29 1845 AC Acetaminophen PO Pravastatin Sodium 80 MG 1700 07/30 1700 AC PO Tamsulosin HCl 0.4 MG DAILY 07/29 1900 AC 07/30 PO 0827 Last 24 Hrs of Lab/[place] Results Last 24 Hrs of Labs/Mics: Laboratory Tests 07/30/17 0555: Anion Gap 10, Estimated GFR > 60, BUN/Creatinine Ratio 21.7, CBC w Diff Pending, WBC Pending, RBC Pending, Hgb Pending, Hct Pending, MCV Pending, MCH Pending, MCHC Pending, RDW Pending, Plt Count Pending, MPV Pending 07/29/17 1355: Anion Gap 15, Estimated GFR 48 L, BUN/Creatinine Ratio 18.7, Glucose 149 H, Calcium 9.9, Total Bilirubin 0.4, AST 11 L, ALT 19 L, Alkaline Phosphatase 96, Total Protein 8.6 H, Albumin 4.2, Globulin 4.4 H, Albumin/Globulin Ratio 1.0 L, PT 14.1 H, INR 1.29 H, CBC w Diff NO MAN DIFF REQ, RBC 5.26, MCV 80.5, MCH 26.5 L, MCHC 32.9 L, RDW 13.4, MPV 6.7 L, Gran % 60.6, Lymphocytes % 28.7, Monocytes % 9.0, Eosinophils % 1.4, Basophils % 0.3, Absolute Granulocytes 5.5, Absolute Lymphocytes 2.6, Absolute Monocytes 0.8 H, Absolute Eosinophils 0.1, Absolute Basophils 0 Microbiology 07/29 1805 EXTREMITIE: Gross Specimen Examination - RECD 07/29 1805 EXTREMITIE: Gram Stain - RECD Assessment/Plan Assessment: Mr. Mathis is a 61-year-old male with past medical history of coronary artery disease status post CA and stents in [address] 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 Morocho, and primary hyperparathyroidism who presents with a left foot infection. Problem list: Uncontrolled diabetes Left foot gangrene and osteomyelitis Plan: Continue IV Unasyn Continue ASA, metoprolol, pravastatin Accu-Cheks and NovoLog SS Levemir increased to 20 units BID DVT prophylaxis with heparin Consistent carbohydrate 1 diet Full code Endo recommendations appreciated Podiatry recommendations appreciated DVT prophylaxis with heparin Consistent carbohydrate 2 diet Full code Problem List: 1. Osteomyelitis 2. Gangrene of left foot 3. Uncontrolled diabetes mellitus Pain Ratin Pain Location: NA Pain Goal: Remain pain free Pain Plan: NA Tomorrow's Labs & Rationales: BEP [facility] hyponatremia [facility]: Attending MD Review Statement Attending Statement Attending MD Statement: examined this patient, discuss w/resident/PA/[employer], agreed w/resident/PA/[employer], reviewed EMR data (avail) Attending Assessment/Plan: Doing well, continue current management, ID and podiatry recommendations, follow cultures, DVT PPx
[2017-07-30 09:05] LABS: ABSOLUTE BASOPHIL COUNT 0 /CUMM (0.0-0.2); ABSOLUTE EOSINOPHIL COUNT 0.1 /CUMM (0.0-0.7); ABSOLUTE GRANULOCYTE CT 4.4 /CUMM (1.4-6.5); ABSOLUTE LYMPH COUNT 2.4 /CUMM (1.2-3.4); ABSOLUTE MONOCYTE COUNT 0.7 /CUMM (0.10-0.60); BASOPHIL % 0.4 % (0.0-2.0); EOSINOPHIL % 1.2 % (0-5); GRANULOCYTE % 58.2 % (42.2-75.2); MEAN CORPUSCULAR HGB 26.5 PG (27.0-31.0); MEAN CORPUSCULAR HGB CONC 32.8 G/DL (33.0-37.0); MEAN CORPUSCULAR VOLUME 80.6 FL (80.0-94.0); MEAN PLATELET VOLUME 7.3 FL (7.4-10.4); PLATELET COUNT 455 /CUMM (130-400); RBC DISTRIBUTION WIDTH 13.2 % (11.5-14.5); RED BLOOD CELL CT 4.62 /CUMM (4.70-6.10); WHITE BLOOD CELL COUNT 7.6 /CUMM (4.8-10.8)
[2017-07-30 09:34] LABS: HEMATOCRIT 37.3 % (42-52)
--- NOTE | 2017-07-30 12:02 | Cons- Endocrinology ---
General Information and HPI Consulting Request Date of Consult: 07/30/17 Requested By: medical team Reason for Consult: management of uncontrolled diabetes type 2. Source of Information: patient, old records Exam Limitations: no limitations History of Present Illness: Mr. Mathis is a 61-year-old male with past medical history of coronary artery disease status post LA and stents in 2002, diabetes mellitus type 2 complicated by diabetic peripheral neuropathy and diabetic foot infection and primary hyperparathyroidism s/p parathyroid surgery, was admitted for left foot infection and underwent left 2nd toe amputation. He was on VGO-40 prior to admission. However, he wasn't complaince with diet and regimen and his DM wasn't controlled with HbA1c of 11% in 01/2017. He was put on Levemir 15 units twoce a day, Novolog coverage before meals and Novolog coverage at bedtime. His FSGs were 285 and 255. Allergies/Medications Allergies: Coded Allergies: NO KNOWN ALLERGIES (UNKNOWN 01/29/17) Home Med List: Aspirin (Ecotrin*) 81 MG TABLET.DR 1 TAB PO DAILY HEART HEALTH (Reported) Cholecalciferol (Vitamin D3) (Vitamin D) 2,000 UNIT CAPSULE 1 CAP PO DAILY SUPPLEMENT (Reported) Fosinopril Sodium 40 MG TABLET 1 TAB PO DAILY BP (Reported) Gabapentin 400 MG CAPSULE 1 CAP PO TID NERVE PAIN (Reported) Insulin Lispro (Humalog) 100 UNIT/ML CARTRIDGE INSULIN PUMP- VGO (Reported) Metoprolol Tartrate (Lopressor) 50 MG TABLET 1 TAB PO DAILY HEART/BP ( Reported) Oxycodone HCl/Acetaminophen (Percocet 5-325 MG Tablet) 5 MG-325 MG TABLET 1 TAB PO Q4-6 PRN postop pain Pravastatin Sodium 80 MG TABLET 1 TAB PO DAILY HEART HEALTH (Reported) Tamsulosin HCl (Flomax) 0.4 MG CAP.ER.24H 1 CAP PO DAILY URINARY DIFFICULTY ( Reported) Review of Systems Review of Systems Constitutional: Reports: see HPI. Cardiovascular: Denies: chest pain. Respiratory: Denies: short of breath. GI: Denies: abdominal pain. Musculoskeletal: Reports: see HPI. 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 Home Services at Home: None Smoking Status: Former Smoker ETOH Use: denies use Illicit Drug Use: denies illicit drug use Functional Ability ADLs Independent: dressing, eating, toileting, bathing. Ambulation: independent IADLs Independent: shopping, housework, finances, food prep, telephone, transportation , medication admin. Exam & Diagnostic Data Last 24 Hrs of Vital Signs/I&O Vital Signs Date Time Temp Pulse Resp B/P B/P Pulse O2 O2 Flow FiO2 Mean Ox Delivery Rate 07/30 0827 136/86 07/30 0826 60 136/86 07/29 2250 136/86 07/29 2249 136/86 07/29 2033 97.8 60 16 136/86 97 Room Air 07/29 2024 Room Air 07/29 1711 97.2 65 18 117/62 99 Room Air 07/29 1710 9 Room Air 07/29 1332 96.2 70 18 145/62 95 Room Air Intake & Output 07/30 1600 07/30 0800 07/30 0000 Intake Total 440 240 Output Total 650 Balance -210 240 Intake, IV 200 Intake, Oral 240 240 Output, Urine 650 Patient 214 lb 216 lb Weight Weight Bed scale Reported by Patient Measurement Method Physical Exam General Appearance: no apparent distress Neck: normal inspection Respiratory: lungs clear Cardiovascular: regular rate/rhythm Extremities: no edema Labs/[place] Results: Laboratory Tests 07/30 07/29 0555 1355 Chemistry Sodium (137 - 145 mmol/L) 136 L 142 Potassium (3.5 - 5.1 mmol/L) 4.5 4.6 Chloride (98 - 107 mmol/L) 100 100 Carbon Dioxide (22 - 30 mmol/L) 26 27 Anion Gap (5 - 16) 10 15 BUN (9 - 20 mg/dL) 26 H 28 H Creatinine (0.7 - 1.2 mg/dL) 1.2 1.5 H Estimated GFR (>60 ml/min) > 60 48 L BUN/Creatinine Ratio (7 - 25 %) 21.7 18.7 Glucose (65 - 99 mg/dL) 149 H Calcium (8.4 - 10.2 mg/dL) 9.9 Total Bilirubin (0.2 - 1.3 mg/dL) 0.4 AST (17 - 59 U/L) 11 L ALT (21 - 72 U/L) 19 L Alkaline Phosphatase (< 127 U/L) 96 Total Protein (6.3 - 8.2 g/dL) 8.6 H Albumin (3.5 - 5.0 g/dL) 4.2 Globulin (1.9 - 4.2 gm/dL) 4.4 H Albumin/Globulin Ratio (1.1 - 2.2 %) 1.0 L Coagulation PT (9.4 - 12.5 SEC) 14.1 H INR (0.90 - 1.17) 1.29 H Hematology CBC w Diff NO MAN DIFF REQ NO MAN DIFF REQ WBC (4.8 - 10.8 /CUMM) 7.6 9.0 RBC (4.70 - 6.10 /CUMM) 4.62 L 5.26 Hgb (14.0 - 18.0 G/DL) 12.2 L 13.9 L Hct (42 - 52 %) 37.3 L 42.3 MCV (80.0 - 94.0 FL) 80.6 80.5 MCH (27.0 - 31.0 PG) 26.5 L 26.5 L MCHC (33.0 - 37.0 G/DL) 32.8 L 32.9 L RDW (11.5 - 14.5 %) 13.2 13.4 Plt Count (130 - 400 /CUMM) 455 H 507 H MPV (7.4 - 10.4 FL) 7.3 L 6.7 L Gran % (42.2 - 75.2 %) 58.2 60.6 Lymphocytes % (20.5 - 51.1 %) 31.0 28.7 Monocytes % (1.7 - 9.3 %) 9.2 9.0 Eosinophils % (0 - 5 %) 1.2 1.4 Basophils % (0.0 - 2.0 %) 0.4 0.3 Absolute Granulocytes (1.4 - 6.5 /CUMM) 4.4 5.5 Absolute Lymphocytes (1.2 - 3.4 /CUMM) 2.4 2.6 Absolute Monocytes (0.10 - 0.60 /CUMM) 0.7 H 0.8 H Absolute Eosinophils (0.0 - 0.7 /CUMM) 0.1 0.1 Absolute Basophils (0.0 - 0.2 /CUMM) 0 0 Assessment/Plan Assessment/Plan Mr. Mathis is a 61-year-old male with past medical history of coronary artery disease status post LA and stents in 2002, diabetes mellitus type 2 complicated by diabetic peripheral neuropathy and diabetic foot infection and primary hyperparathyroidism s/p parathyroid surgery, was admitted for left foot infection and underwent left 2nd toe amputation. DM management: 1. increase Levemir to 20 units twice a day; 2. continue the current Novolog coverage before meals and Novolog coverage at bedtime--detail see the inpatient DM orders; 3. monitor FSGs. will follow. Inpatient Diabetes Orders Before Each Meal: Bolus Insulin: Novolog < 80 mg/dl: no coverage 80-100 mg/dl: 6 units 101-120 mg/dl: 6 units 121-150 mg/dl: 6 units 151-200 mg/dl: 8 units 201-250 mg/dl: 10 units 251-300 mg/dl: 12 units 301-350 mg/dl: 14 units 351-400 mg/dl: 16 units > 400 mg/dl: 18 units Bedtime: Bolus Insulin: Novolog < 80 mg/dl: no coverage 80-100 mg/dl: no coverage 101-120 mg/dl: no coverage 121-150 mg/dl: no covearge 151-200 mg/dl: no coverage 201-250 mg/dl: no coverage 251-300 mg/dl: 2 units 301-350 mg/dl: 3 units 351-400 mg/dl: 4 units > 400 mg/dl: 5 units Consult Acknowledgment - Thank you for your consult request.
[2017-07-30 14:41] VITALS: BP 132/84
--- NOTE | 2017-07-30 16:13 | Cons- Infect Disease ---
General Information and HPI Consulting Request Date of Consult: 07/30/17 Requested By: Robert Perdomo MD Reason for Consult: Osteomyelitis of the left second toe Source of Information: patient, old records History of Present Illness: This is a 61-year-old man with a history of hypertension, coronary artery disease, status post [place] and stents, diabetes, peripheral vascular disease, status post first, second and third toe amputations of the right foot, with a chronic, intermittently draining wound, status post amputation of the left great toe 6 months prior to admission, treated with a one week course of oral antibiotics postop for a residual soft tissue infection, with the development of an ulcer on the left second toe several weeks prior to admission, treated with oral antibiotics by Podiatry, admitted on July 29 with a 4 day history of left second toe swelling, increased pain, fever, chills and general malaise. On admission he was afebrile. Laboratory data revealed a white blood cell count of 9000, BUN/creatinine 28 and 1.5, with normal liver enzymes, INR 1.29. X-ray of the left foot revealed soft tissue swelling with foci of lucency within the soft tissues, with apparent irregularity of the tip of the second distal phalanx. He was taken to the OR for amputation of the left second toe and was begun on Unasyn postoperatively. He has remained afebrile since admission. He currently notes pain in both feet, which he attributes to his neuropathy. Allergies/Medications Allergies: Coded Allergies: NO KNOWN ALLERGIES (UNKNOWN 01/29/17) Home Med List: Aspirin (Ecotrin*) 81 MG TABLET.DR 1 TAB PO DAILY HEART HEALTH (Reported) Cholecalciferol (Vitamin D3) (Vitamin D) 2,000 UNIT CAPSULE 1 CAP PO DAILY SUPPLEMENT (Reported) Fosinopril Sodium 40 MG TABLET 1 TAB PO DAILY BP (Reported) Gabapentin 400 MG CAPSULE 1 CAP PO TID NERVE PAIN (Reported) Insulin Lispro (Humalog) 100 UNIT/ML CARTRIDGE INSULIN PUMP- VGO (Reported) Metoprolol Tartrate (Lopressor) 50 MG TABLET 1 TAB PO DAILY HEART/BP ( Reported) Oxycodone HCl/Acetaminophen (Percocet 5-325 MG Tablet) 5 MG-325 MG TABLET 1 TAB PO Q4-6 PRN postop pain Pravastatin Sodium 80 MG TABLET 1 TAB PO DAILY HEART HEALTH (Reported) Tamsulosin HCl (Flomax) 0.4 MG CAP.ER.24H 1 CAP PO DAILY URINARY DIFFICULTY ( Reported) Past History Travel History Traveled to [place] past 21 day No Medical History Blood Transfusion Hx: No Neurological: peripheral neuropathy EENT: NONE Cardiovascular: CAD (status post stents), hypertension, hyperlipidemia, myocardial infarction, STENTS Respiratory: NONE Gastrointestinal: NONE Hepatic: NONE Renal: NONE Musculoskeletal: osteomyelitis of right 1st, 2nd and 3rd toes OTOEMYLITIS OF L 1ST TOE Psychiatric: NONE Endocrine: diabetes Cancer(s): NONE APPEALS COORDINATOR/Reproductive: NONE History of MRSA: Yes History of VRE: No History of CDIFF: No Isolation History: Contact Surgical History Surgical History: right 1st, 2nd and 3rd toe amputations L FOOT 1ST TOE AMP LASER EYE SURGERY, status post 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 Home Services at Home: None Smoking Status: Former Smoker ETOH Use: denies use Illicit Drug Use: denies illicit drug use Functional Ability ADLs Independent: dressing, eating, toileting, bathing. Ambulation: independent IADLs Independent: shopping, housework, finances, food prep, telephone, transportation , medication admin. Review of Systems Review of Systems All Other Systems: Reviewed and Negative Exam & Diagnostic Data Last 24 Hrs of Vital Signs/I&O Vital Signs Date Time Temp Pulse Resp B/P B/P Pulse O2 O2 Flow FiO2 Mean Ox Delivery Rate 07/30 1441 98.8 70 18 132/84 97 Room Air 07/30 0827 136/86 07/30 0826 60 136/86 07/29 2250 136/86 07/29 2249 136/86 07/29 2032 97.8 60 16 136/86 97 Room Air 07/30 2023 Room Air 07/29 171 97.2 65 18 117/62 99 Room Air 07/29 1710 9 Room Air Intake & Output 07/30 1600 07/30 0800 07/30 0000 Intake Total 440 240 Output Total 650 Balance -210 240 Intake, IV 200 Intake, Oral 240 240 Output, Urine 650 Patient 214 lb 216 lb Weight Weight Bed scale Reported by Patient Measurement Method Physical Exam Other Physical Findings: Afebrile. He is awake and alert in no acute distress. Skin reveals no rash. HEENT negative. Neck is supple with no adenopathy. Lungs are clear. Heart regular rhythm with no murmur. Abdomen is soft, nontender with positive bowel sounds. Back no CVA tenderness. Extremities left foot dressing intact; status post amputation of the right first, second and third toes; plantar ulcer with no active drainage or surrounding inflammation; pulses 1+ on the right, with no cyanosis, clubbing or edema. Neuro neuropathy of the feet. Last 24 Hours of Lab Results: Laboratory Tests 07/30 0555 Chemistry Sodium (137 - 145 mmol/L) 136 L Potassium (3.5 - 5.1 mmol/L) 4.5 Chloride (98 - 107 mmol/L) 100 Carbon Dioxide (22 - 30 mmol/L) 26 Anion Gap (5 - 16) 10 BUN (9 - 20 mg/dL) 26 H Creatinine (0.7 - 1.2 mg/dL) 1.2 Estimated GFR (>60 ml/min) > 60 BUN/Creatinine Ratio (7 - 25 %) 21.7 Hematology CBC w Diff NO MAN DIFF REQ WBC (4.8 - 10.8 /CUMM) 7.6 RBC (4.70 - 6.10 /CUMM) 4.62 L Hgb (14.0 - 18.0 G/DL) 12.2 L Hct (42 - 52 %) 37.3 L MCV (80.0 - 94.0 FL) 80.6 MCH (27.0 - 31.0 PG) 26.5 L MCHC (33.0 - 37.0 G/DL) 32.8 L RDW (11.5 - 14.5 %) 13.2 Plt Count (130 - 400 /CUMM) 455 H MPV (7.4 - 10.4 FL) 7.3 L Gran % (42.2 - 75.2 %) 58.2 Lymphocytes % (20.5 - 51.1 %) 31.0 Monocytes % (1.7 - 9.3 %) 9.2 Eosinophils % (0 - 5 %) 1.2 Basophils % (0.0 - 2.0 %) 0.4 Absolute Granulocytes (1.4 - 6.5 /CUMM) 4.4 Absolute Lymphocytes (1.2 - 3.4 /CUMM) 2.4 Absolute Monocytes (0.10 - 0.60 /CUMM) 0.7 H Absolute Eosinophils (0.0 - 0.7 /CUMM) 0.1 Absolute Basophils (0.0 - 0.2 /CUMM) 0 Last 24 Hours of [place] Results: OR culture July 29 labeled left second toe positive for alpha strep, Group B strep, a third gram-positive cocci and gram-negative rods Diagnostic Data Recent Imaging Findings: X-ray of the left foot revealed soft tissue swelling with foci of lucency within the soft tissues, with apparent irregularity of the tip of the second distal phalanx. Assessment/Plan Assessment/Plan Impression: This is a 61-year-old man with a history of diabetes, peripheral vascular disease, status post first, second and third toe amputations of the right foot, with a chronic, intermittently draining wound, status post amputation of the left great toe 6 months prior to admission, admitted on July 29 with a several week history of an ulcer on the left second toe and a 4 day history of left second toe swelling, increased pain, fever, chills and general malaise, found to be afebrile with a normal white blood cell count and with an x-ray suggesting osteomyelitis of the left second distal phalanx now 1 day status post amputation of the left second toe. His clinical picture is consistent with osteomyelitis of the left second toe with an associated soft tissue infection. Have discussed with Podiatry, who feels that all of the infected bone has likely been removed; therefore he should only be left with a residual soft tissue infection and, therefore, should not require a prolonged course of IV antibiotics. His OR culture is growing multiple organisms and, based on his previous cultures, his antibiotics can be broadened pending final cultures. His right foot wound has not completely healed, with intermittent drainage reported, and suspect that he has an underlying chronic osteomyelitis of this foot. Suggestion: 1. Follow-up final OR culture 2. Further management of the left foot, including further debridement and wound closure, per Podiatry 3. X-ray of the right foot, with possible MRI based on these results 4. Discontinue Unasyn 5. Begin Zosyn 4.5 g IV every 6 hours pending above Consult Acknowledgment - Thank you for your consult request.
--- NOTE | 2017-07-30 17:45 | RADIOLOGY REPORT ---
EXAMINATION: XR FOOT, RIGHT CLINICAL INFORMATION: History of osteomyelitis. Rule out acute pathology. COMPARISON: 04/06/2015 TECHNIQUE: AP, lateral, and oblique views of the right foot. FINDINGS: As seen on the prior study, the first, second, and third toes are absent along with much of the distal aspects of the fourth, second, and third metatarsals. There is soft tissue swelling of the stump. Linear lucency at the distal margin of the stump may correspond to air within an ulceration. No specific findings of underlying osseous myelitis identified. Specifically, no findings of progressive osteolysis or osteopenia are appreciated. IMPRESSION: Soft tissue swelling and possible ulceration at the site of prior amputation of the first, second, and third toes. No specific radiographic findings of osteomyelitis are identified. Consider correlation with MRI if additional specificity and sensitivity are clinically warranted.
[2017-07-30 22:57] VITALS: BP 152/73
[2017-07-31 06:50] VITALS: BP 129/77
--- NOTE | 2017-07-31 07:28 | PN- Housestaff ---
See Addendum Subjective Follow-up For: 1 gangrene left second digit s/p excisional debridement POD 1 2 osteomyelitis left second digit 3 diabetic peripheral neuropathy 4 Uncontrolled diabetes Subjective: No complaints or acute events overnight FSG [id number] Review of Systems Constitutional: Reports: see HPI. Objective Last 24 Hrs of Vital Signs/I&O Vital Signs Date Time Temp Pulse Resp B/P B/P Pulse O2 O2 Flow FiO2 Mean Ox Delivery Rate 07/31 0650 98.3 72 18 129/77 99 Room Air 07/30 2257 98.2 73 20 152/73 100 Room Air 07/30 1441 98.8 70 18 132/84 97 Room Air Intake & Output 07/31 1600 07/31 0800 07/31 0000 Intake Total 275 480 Output Total Balance 275 480 Intake, IV 275 Intake, Oral 480 Number 0 Bowel Movements Patient 217 lb Weight Weight Bed scale Measurement Method Physical Exam General Appearance: Alert, Oriented X3, Cooperative, No Acute Distress Cardiovascular: Regular Rate, Normal S1, Normal S2 Lungs: Clear to Auscultation, Normal Air Movement Abdomen: Normal Bowel Sounds, Soft, No Tenderness Extremities: L foot with serosanguinous drainage Current Medications: Current Medications Sig/Nathan Start time Last Medication Dose Route Stop Time Status Admin Acetaminophen 650 MG .STK-MED ONE 07/30 1606 DC PO 07/30 1607 Acetaminophen 650 MG Q4P PRN 07/29 191 AC 07/30 PO 1608 Ampicillin Sodium/ 1,500 MG Q6 07/29 2359 DC 07/30 Sulbactam Sodium IV 1255 Sodium Chloride 100 ML Aspirin Buffered 81 MG DAILY 07/29 1900 AC 07/30 PO 0827 Dextrose/Sodium 1,000 ML Q13H 07/31 0600 AC 07/31 Chloride IV 0545 Gabapentin 400 MG TID 07/29 1900 AC 07/30 PO 2233 Heparin Sodium 5,000 UNIT Q8 07/29 2200 07/31 (Porcine) SC 0527 Insulin Aspart 0 TIDAC 07/30 0800 DC 07/30 SC 1733 Insulin Aspart 0 AT BEDTIME 07/29 2245 DC 07/29 SC 2243 Insulin Detemir 10 UNITS ONCE ONE 07/30 2200 DC 07/30 SC 07/30 2201 2233 Insulin Detemir 20 UNITS BID 07/30 1000 DC SC Insulin Human Regular 10 UNITS .STK-MED ONE 07/31 0013 DC IV 07/31 0014 Insulin Human Regular 0 Q6 07/30 2359 AC 07/31 SC 0528 Metoprolol Tartrate 50 MG DAILY 07/30 1999 AC 07/30 PO 0826 Non-Formulary 0 SEE ADMIN CRITERIA 07/30 1630 DC Medication ANY Oxycodone/ 1 TAB Q4-6 PRN 07/29 1845 AC Acetaminophen PO Piperacillin Sod/ 4.5 GM Q6 07/30 1800 AC 07/31 Tazobactam Sod IV 0539 Sodium Chloride 100 ML Polyethylene Glycol 17 GM DAILY 07/31 1000 AC PO Pravastatin Sodium 80 MG 1700 07/30 1700 AC 07/30 PO 1608 Tamsulosin HCl 0.4 MG DAILY 07/29 1900 AC 07/30 PO 0827 Last 24 Hrs of Lab/[place] Results Last 24 Hrs of Labs/Mics: Laboratory Tests 07/31/17 0555: Anion Gap 9, Estimated GFR 57 L, BUN/Creatinine Ratio 16.2 Assessment/Plan Assessment: Mr. Mathis is a 61-year-old male with past medical history of coronary artery disease status post [place] and stents [place] [address] 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 Morocho, and primary hyperparathyroidism who presents with a left foot infection. Problem list: Uncontrolled diabetes Left foot gangrene and osteomyelitis Plan: 2nd debridement today XR R foot without evidence of OM Continue IV Zosyn Continue ASA, metoprolol, pravastatin Accu-Cheks and NovoLog SS Continue Levemir 20 units BID Endo recommendations appreciated Podiatry recommendations appreciated DVT prophylaxis with heparin Consistent carbohydrate 2 diet Full code Problem List: 1. Osteomyelitis 2. Gangrene of left foot 3. Uncontrolled diabetes mellitus Pain Ratin Pain Location: NA Pain Goal: Remain pain free Pain Plan: NA Tomorrow's Labs & Rationales: BEP for renal function BEP for renal function
--- NOTE | 2017-07-31 08:22 | PN- Diabetes ---
Assessment/Plan Diabetes Assessment: Mr. Mathis is a 61-year-old male with past medical history of coronary artery disease status post [place] and stents in 2002, diabetes mellitus type 2 complicated by diabetic peripheral neuropathy and diabetic foot infection and primary hyperparathyroidism s/p parathyroid surgery, was admitted for left foot infection and underwent left 2nd toe amputation. He was put on Levemir 20 units twice a day, Novolog coverage before meals and Novolog coverage at bedtime. His FSGs were 97 and 103, 317. However, he is going to go to OR again today anmd he has been kept NPO and was put on D51/2 NS at 75 ml per hour. In addition, Levemir was decreased to 10 units last night and he was put on RISS every 6 hours. His most rececent FSG this morning was 241, Plan: when he is back from OR and ready to eat meals, he will be on his previous insulin regimen-- Levemir 20 units twice a day, Novolog coverage before meals and Novolog coverage at bedtime. Monitor FSGs. will follow. Subjective Subjective: He feels okay this morning. Objective Last 24 Hrs of Vital Signs/I&O Vital Signs Date Time Temp Pulse Resp B/P B/P Pulse O2 O2 Flow FiO2 Mean Ox Delivery Rate 07/31 0650 98.3 72 18 129/77 99 Room Air 07/30 2257 98.2 73 20 152/73 100 Room Air 07/30 1441 98.8 70 18 132/84 97 Room Air 07/30 0827 136/86 07/30 0826 60 136/86 Intake & Output 07/31 1600 07/31 0800 07/31 0000 Intake Total 275 480 Output Total Balance 275 480 Intake, IV 275 Intake, Oral 480 Number 0 Bowel Movements Patient 217 lb Weight Weight Bed scale Measurement Method Findings Pertinent Lab/[place] Results: Laboratory Tests 07/31 0555 Chemistry Sodium Pending Potassium Pending Chloride Pending Carbon Dioxide Pending Anion Gap Pending BUN Pending Creatinine Pending BUN/Creatinine Ratio Pending
--- NOTE | 2017-07-31 13:46 | PN- Infect Dx ---
Subjective Subjective: Afebrile. He notes pain in both feet, which he attributes to his neuropathy. Objective Last 24 Hrs of Vital Signs/I&O Vital Signs Date Time Temp Pulse Resp B/P B/P Pulse O2 O2 Flow FiO2 Mean Ox Delivery Rate 07/31 1032 72 129/77 07/31 1032 72 129/77 07/31 0650 98.3 72 18 129/77 99 Room Air 07/30 2257 98.2 73 20 152/73 100 Room Air 07/30 1441 98.8 70 18 132/84 97 Room Air Intake & Output 07/31 1600 07/31 0800 07/31 0000 Intake Total 275 480 Output Total Balance 275 480 Intake, IV 275 Intake, Oral 480 Number 0 Bowel Movements Patient 217 lb Weight Weight Bed scale Measurement Method Physical Exam Other Physical Findings: He appears comfortable in no acute distress Extremities dressings intact over both feet Results Last 24 Hours of Lab Results: Laboratory Tests 07/31 0555 Chemistry Sodium (137 - 145 mmol/L) 137 Potassium (3.5 - 5.1 mmol/L) 4.6 Chloride (98 - 107 mmol/L) 102 Carbon Dioxide (22 - 30 mmol/L) 26 Anion Gap (5 - 16) 9 BUN (9 - 20 mg/dL) 21 H Creatinine (0.7 - 1.2 mg/dL) 1.3 H Estimated GFR (>60 ml/min) 57 L BUN/Creatinine Ratio (7 - 25 %) 16.2 Last 24 Hours of [place] Results: OR culture July 29 labeled left second toe bone positive for alpha strep, Enterococcus, sensitivities pending, Pseudomonas resistant to Ciprofloxacin, Staph aureus, sensitivities pending, and Group B strep Recent Imaging Studies: X-ray of the right foot reveals soft tissue swelling with no evidence of osteomyelitis Assessment/Plan ID Impression: Stable status post amputation of the left second toe 2 days ago for osteomyelitis, with his OR culture positive for multiple organisms. He remains afebrile with white blood cell count normal, now on Zosyn, to cover the multiple organisms isolated from his recent culture. He is scheduled for a return to the OR later today for probable wound closure. As noted previously he is not felt to have residual osteomyelitis; therefore he should not require a prolonged course of antibiotics. His Pseudomonas, however, is resistant to Ciprofloxacin; therefore his antibiotics for any residual soft tissue infection will need to remain IV. His right foot x-ray does not suggest osteomyelitis, but, given the chronic nonhealing wound, an MRI may need to be considered. Suggestion: 1. Follow-up final OR culture 2. Consider MRI of the right foot (would defer to Podiatry on this) 3. Await return to the OR later today 4. Continue Zosyn
[2017-07-31 14:10] VITALS: BP 118/72
--- NOTE | 2017-07-31 20:28 | Operative Report ---
Operative/Inv Procedure Report Surgery Date: 07/31/17 Name of Procedure: 1 Open incision and drainage deep to the deep fascia with exposure of the extensor and flexor tendon and tendon sheath multiple sites 2 Delayed primary closure of open surgical wound with local random advancement flap 3 Intra-operative administration of ankle block anesthesia 4 Excisional debridement Pre-Operative Diagnosis: 1 Open necrotic wound left foot 2 Diabetic peripheral neuropathy Post-Operative Diagnosis: The same Estimated Blood Loss: less than 50ml Surgeon/Station Examiner: ELINA DICKERSON DPM Anesthesia: moderate sedation, block Operative/Procedure Note Note: After obtaining informed consent, the patient was brought to the operating room and placed on the operating table in the supine position. The patient isn't securely fastened to the operating table utilizing safety belt. After measures of IV sedation, 10 mL of 0.5% Marcaine plain was infiltrated about the patient's left ankle. Left foot and ankle then scrubbed prepped and draped in the usual aseptic manner. Attention was then directed to the left foot, where a large full-thickness necrotic was identified. A 15 blade visualized sharply revised skin margins. Dissection was then carried down deep to the deep fascia with exposure of the extensor and flexor tendon and tendon sheath multiple sites, both proximally and distally. All necrotic nonviable infected tissue sharply evacuated wound bed. The open wound was then irrigated with 3 L of normal sterile saline fissure 50,000 units of bacitracin. Following this, the foot was redraped and the surgeon's top of gestation clean gloves. Any bleeding vessels identified were cauterized or ligated as encountered. A dorsal plantar flap was then developed with undermining, mobilization and advancement adjacent tissue centrally. The deep side of the flap was held centrally with 3-0 Vicryl septae stitches reprepped with 3-0 Vicryl. The skin is reprepped with 3-0 nylon. Incision was then dressed with Xeroform 4 x 4's Kerlix and an Abraham wrap. The patient was noted tolerate both procedure and anesthesia well and the patient was transported from the operating room to recovery with vital signs stable best assess intact to the dorsal plantar flaps.
[2017-07-31 21:59] VITALS: BP 158/95
[2017-08-01 06:48] VITALS: BP 136/76
--- NOTE | 2017-08-01 07:13 | PN- Housestaff ---
Jose Elias Ricci 08/01/17 0713: Subjective Follow-up For: 1 gangrene left second digit s/p excisional debridement POD 2 2 osteomyelitis left second digit 3 diabetic peripheral neuropathy 4 Uncontrolled diabetes Subjective: No complaints or acute events overnight FSG 267 Review of Systems Constitutional: Reports: see HPI. Objective Last 24 Hrs of Vital Signs/I&O Vital Signs Date Time Temp Pulse Resp B/P B/P Pulse O2 O2 Flow FiO2 Mean Ox Delivery Rate 08/01 0648 98.1 61 18 136/76 99 Room Air 07/31 2159 97.9 70 18 158/95 100 Room Air 07/31 1410 98.6 66 18 118/72 98 Room Air 07/31 1032 72 129/77 07/31 1032 72 129/77 Intake & Output 08/01 1600 08/01 0800 08/01 0000 Intake Total 440 500 Output Total 500 Balance -60 500 Intake, IV 200 Intake, Oral 240 500 Output, Urine 500 Physical Exam General Appearance: Alert, Oriented X3, Cooperative, No Acute Distress Cardiovascular: Regular Rate, Normal S1, Normal S2 Lungs: Clear to Auscultation, Normal Air Movement Extremities: L foot dressing intact without drainage Current Medications: Current Medications Sig/Nathan Start time Last Medication Dose Route Stop Time Status Admin Acetaminophen 650 MG Q4P PRN 07/29 1915 AC 07/30 PO 1608 Aspirin Buffered 81 MG DAILY 07/29 190 AC 07/30 PO 0827 Dextrose/Sodium 1,000 ML Q13H 07/31 0600 DC 07/31 Chloride IV 0545 Fentanyl Citrate 100 MCG .STK-MED ONE 07/31 1439 DC IM 07/31 1440 Gabapentin 400 MG TID 07/29 190 AC 07/31 PO 2140 Heparin Sodium 5,000 UNIT Q8 07/29 2200 AC 08/01 (Porcine) SC 0619 Insulin Aspart 0 AT BEDTIME 07/31 2200 AC 07/31 SC 2140 Insulin Aspart 0 TIDAC 07/31 1700 AC 07/31 SC 1731 Insulin Human Regular 4 UNITS .STK-MED ONE 07/31 1218 DC IV 07/31 1219 Insulin Human Regular 0 Q6 07/30 2359 DC 07/31 SC 1224 Metoprolol Tartrate 50 MG DAILY 07/30 1999 AC 07/31 PO 1032 Midazolam HCl 2 MG .STK-MED ONE 07/31 1440 DC IM 07/31 1441 Oxycodone/ 1 TAB Q4-6 PRN 07/29 1845 AC Acetaminophen PO Piperacillin Sod/ 4.5 GM Q6 07/30 1800 AC 08/01 Tazobactam Sod IV 0619 Sodium Chloride 100 ML Polyethylene Glycol 17 GM DAILY 07/31 1000 AC 07/31 PO 1032 Pravastatin Sodium 80 MG 1700 07/30 1700 AC 07/31 PO 1618 Tamsulosin HCl 0.4 MG DAILY 07/29 1900 AC 07/31 PO 1032 Last 24 Hrs of Lab/[place] Results Last 24 Hrs of Labs/Mics: Laboratory Tests 08/01/17 0555: Sodium Pending, Potassium Pending, Chloride Pending, Carbon Dioxide Pending, Anion Gap Pending, BUN Pending, Creatinine Pending, BUN/Creatinine Ratio Pending Assessment/Plan Assessment: Mr. Mathis is a 61-year-old male with past medical history of coronary artery disease status post CT and stents in [address] 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 Morocho, and primary hyperparathyroidism who presents with a left foot infection. Problem list: Uncontrolled diabetes Left foot gangrene and osteomyelitis Plan: XR R foot without evidence of OM. We will not explore R foot as per Podiatry Wound cultures grew MRSA, Pseudomonas susceptible to Zosyn Change IV Zosyn to IV Ceftaz, Metronidazole, Vanco as per ID Continue ASA, metoprolol, pravastatin Repeat XR L foot Accu-Cheks and NovoLog SS Continue Levemir 20 units BID Endo recommendations appreciated Podiatry recommendations appreciated DVT prophylaxis with heparin Consistent carbohydrate 2 diet Full code Problem List: 1. Gangrene of left foot 2. Uncontrolled diabetes mellitus 3. Osteomyelitis of left foot Pain Ratin Pain Location: NA Pain Goal: Remain pain free Pain Plan: NA Tomorrow's Labs & Rationales: NONE Robert Perdomo MD 08/01/17 1109: Attending MD Review Statement Attending Statement Attending MD Statement: examined this patient, discuss w/resident/PA/MANAGER BATTERY, agreed w/resident/PA/MANAGER BATTERY, reviewed EMR data (avail) Attending Assessment/Plan: 61M PMH poorly controlled DM (Hgb A1C 13.3% 06/06) with diabetic neuropathy and nephropathy, primary hyperparathyroidism s/p parathyroidectomy 2017, CAD s/p PCI , BPH admitted for acute osteomyelitis and gas gangrene of the left foot s/p amputation of 2nd toe on 07/29, with non-healing ulcer on right foot, with no evidence of sepsis, cultures growing alpha-Strep, Group B strep, S.aureus, Pseudomonas, and Enterococcus, currently on Zosyn. 1. Acute osteomyelitis of the left foot with gas gangrene secondary to orgamisms listed above 2. Uncontrolled Type 2 IDDM 3. PVD 4. Diabetic polyneuropathy Plan - Continue on general medicine - Continue Zosyn - Follow podiatry and ID recommendations - No further evaluation of the right foot per podiatry - Continue home medications - Monitor fingersticks - DVT PPx - Anticipated discharge today or tomorrow depending on ID recommendations
--- NOTE | 2017-08-01 08:32 | PN- Diabetes ---
Assessment/Plan Diabetes Assessment: Mr. Mathis is a 61-year-old male with past medical history of coronary artery disease status post [place] and stents in 2002, diabetes mellitus type 2 complicated by diabetic peripheral neuropathy and diabetic foot infection and primary hyperparathyroidism s/p parathyroid surgery, was admitted for left foot infection and underwent left 2nd toe amputation. He was put on Levemir 20 units twice a day, Novolog coverage before meals and Novolog coverage at bedtime. His FSGs were 97 and 103, 317. However, he went to OR again on 07/31/2017 and he didn't receive Levemir last night. His FSGs were 382 and 267. Plan: 1. restart Levemir 20 units twice a day; 2. adjust Novolog coverage before meals; detail see the inpatient DM order; 3. continue the current Novolog coverage at bedtime; 4. monitor FSGs. will follow. Inpatient Diabetes Orders Before Each Meal: Bolus Insulin: Novolog < 80 mg/dl: no coverage 80-100 mg/dl: 8 units 101-120 mg/dl: 8 units 121-150 mg/dl: 8 units 151-200 mg/dl: 10 units 201-250 mg/dl: 12 units 251-300 mg/dl: 14 units 301-350 mg/dl: 16 units 351-400 mg/dl: 18 units > 400 mg/dl: 20 units Subjective Subjective: He feels okay. Objective Last 24 Hrs of Vital Signs/I&O Vital Signs Date Time Temp Pulse Resp B/P B/P Pulse O2 O2 Flow FiO2 Mean Ox Delivery Rate 08/01 0648 98.1 61 18 136/76 99 Room Air 07/31 2159 97.9 70 18 158/95 100 Room Air 07/31 1410 98.6 66 18 118/72 98 Room Air 07/31 1032 72 129/77 07/31 1032 72 129/77 Intake & Output 08/01 1600 08/01 0800 08/01 0000 Intake Total 440 500 Output Total 500 Balance -60 500 Intake, IV 200 Intake, Oral 240 500 Output, Urine 500 Findings Pertinent Lab/[place] Results: Laboratory Tests 08/01 0555 Chemistry Sodium Pending Potassium Pending Chloride Pending Carbon Dioxide Pending Anion Gap Pending BUN Pending Creatinine Pending BUN/Creatinine Ratio Pending
--- NOTE | 2017-08-01 13:41 | Patient Discharge Instructions ---
Discharge Instructions General Discharge Information You were seen/treated for: L foot osteomyelitis L foot gangrene Elevated blood sugars You had these procedures: Debridement Special Instructions: Follow up with your Aeronautical Engineer upon discharge Follow up with your Drafter Structural within 1 week for insulin management Follow up with your PCP within 1-2 weeks after discharge Diet Recommended Diet: Diabetic Activity Other activity limits: As tolerated Acute Coronary Syndrome Inclusion Criteria At DC or during hospital stay patient has or had the following: ACS DIAGNOSIS No Discharge Core Measures Meds if any: Prescribed or Continued at Discharge Meds if any: NOT Prescribed or Continued at Discharge Congestive Heart Failure Inclusion Criteria At DC or during hospital stay patient has or had the following: CHF DIAGNOSIS No Discharge Core Measures Meds if any: Prescribed or Continued at Discharge Meds if any: NOT Prescribed or Continued at Discharge Cerebrovascular accident Inclusion Criteria At DC or during hospital stay patient has or had the following: CVA/TIA Diagnosis No Discharge Core Measures Meds if any: Prescribed or Continued at Discharge Meds if any: NOT Prescribed or Continued at Discharge Venous thromboembolism Inclusion Criteria VTE Diagnosis No VTE Type NONE VTE Confirmed by (Test) NONE Discharge Core Measures - Per Current guidelines, there needs to be overlap - treatment for the first 5 days of Warfarin therapy. - If discharged on Warfarin prior to 5 days of - overlap therapy, the patient will need to be - assessed for post discharge needs including - *Post discharge parental anticoagulation - *Warfarin and/or parental anticoagulation education - *Follow up date to check INR post discharge At least 5 days overlap therapy as Inpatient No Meds if any: Prescribed or Continued at Discharge Note: Overlap Therapy is Warfarin and Anticoagulant Meds if any: NOT Prescribed or Continued at Discharge
--- NOTE | 2017-08-01 13:45 | PN- Infect Dx ---
Subjective Subjective: Afebrile without new complaints Objective Last 24 Hrs of Vital Signs/I&O Vital Signs Date Time Temp Pulse Resp B/P B/P Pulse O2 O2 Flow FiO2 Mean Ox Delivery Rate 08/01 0955 136/76 08/01 0955 61 136/76 08/01 0648 98.1 61 18 136/76 99 Room Air 07/31 2159 97.9 70 18 158/95 100 Room Air 07/31 1410 98.6 66 18 118/72 98 Room Air Intake & Output 08/01 1600 08/01 0800 08/01 0000 Intake Total 440 500 Output Total 500 Balance -60 500 Intake, IV 200 Intake, Oral 240 500 Output, Urine 500 Physical Exam Other Physical Findings: He appears comfortable in no acute distress Extremities left foot dressing intact Results Last 24 Hours of Lab Results: Laboratory Tests 08/01 0555 Chemistry Sodium (137 - 145 mmol/L) 137 Potassium (3.5 - 5.1 mmol/L) 4.6 Chloride (98 - 107 mmol/L) 100 Carbon Dioxide (22 - 30 mmol/L) 25 Anion Gap (5 - 16) 13 BUN (9 - 20 mg/dL) 14 Creatinine (0.7 - 1.2 mg/dL) 1.1 Estimated GFR (>60 ml/min) > 60 BUN/Creatinine Ratio (7 - 25 %) 12.7 Last 24 Hours of [place] Results: OR culture labeled left second toe bone positive for alpha strep, Enterococcus resistant to Ampicillin, Group B strep, Pseudomonas resistant to Ciprofloxacin, mixed anaerobic gram-negative rods and MRSA Assessment/Plan ID Impression: Stable status post delayed primary closure of the open wound of his left foot with further debridement yesterday, now 3 days status post amputation of the left second toe for a polymicrobial osteomyelitis, now with MRSA and Enterococcus resistant to Ampicillin also identified. He remains afebrile with his last white blood cell count normal, on Zosyn, but, based on the final OR cultures, his antibiotics will again need to be adjusted. As noted previously he is not felt to have residual osteomyelitis; however he will require at least one week of antibiotics for a residual soft tissue infection and, based on the cultures, this will need to be with IV antibiotics. His right foot x-ray does not suggest osteomyelitis, but, given the chronic nonhealing wound, an MRI may need to be considered. Suggestion: 1. Consider MRI of the right foot (could do as an outpatient) 2. Obtain a postoperative baseline x-ray of the left foot 3. Discontinue Zosyn 4. Begin Vancomycin 1 g IV every 12 hours, Flagyl 500 mg IV every 8 hours and Ceftazidime 2 g IV every 8 hours
[2017-08-01 14:30] VITALS: BP 135/80
--- NOTE | 2017-08-01 14:53 | RADIOLOGY REPORT ---
EXAMINATION: XR FOOT, LEFT CLINICAL INFORMATION: Status post debridement of osteomyelitis COMPARISON: 07/29/2017 TECHNIQUE: Left foot, 3 views FINDINGS: Surgical change from remote amputation through the shaft of the 1st metatarsal. There is been recent amputation of the second toe at the level of the metatarsophalangeal joint. The residual bones of the foot are intact; no osseous erosion or aggressive periostitis. Soft tissues are swollen in the forefoot. No soft tissue emphysema or radiopaque foreign body. IMPRESSION: 1. Status post recent amputation of the second toe through the MTP joint. 2. Soft tissue swelling of the forefoot without soft tissue emphysema.
[2017-08-01 21:42] VITALS: BP 139/80
[2017-08-02 06:53] VITALS: BP 135/79
--- NOTE | 2017-08-02 07:29 | PN- Housestaff ---
Jose Elias Ricci 08/02/17 0728: Subjective Follow-up For: 1 gangrene left second digit s/p excisional debridement POD 2 2 osteomyelitis left second digit 3 diabetic peripheral neuropathy 4 Uncontrolled diabetes 5. Wound cultures + for MRSA, Enterococcus, Pseudomonas Subjective: Patient reports he does not want a PICC line because it gives him keloids. Patient anxious to go home Review of Systems Constitutional: Reports: see HPI. Objective Last 24 Hrs of Vital Signs/I&O Vital Signs Date Time Temp Pulse Resp B/P B/P Pulse O2 O2 Flow FiO2 Mean Ox Delivery Rate 08/02 0653 97.8 72 18 135/79 99 Room Air 08/01 2142 98.9 68 18 139/80 100 Room Air 08/01 1430 98.0 68 18 135/80 100 Room Air 08/01 0955 136/76 08/01 0955 61 136/76 Intake & Output 08/02 1600 08/02 0800 08/02 0000 Intake Total 680 500 Output Total 750 700 Balance -70 -200 Intake, IV 200 Intake, Oral 480 500 Output, Urine 750 700 Physical Exam General Appearance: Alert, Oriented X3, Cooperative, No Acute Distress Cardiovascular: Regular Rate, Normal S1, Normal S2 Lungs: Clear to Auscultation, Normal Air Movement Current Medications: Current Medications Sig/Nathan Start time Last Medication Dose Route Stop Time Status Admin Acetaminophen 650 MG Q4P PRN 07/29 1915 AC 07/30 PO 1608 Aspirin Buffered 81 MG DAILY 07/29 1900 AC 08/01 PO 0955 Ceftazidime 2,000 MG IQ8 08/01 1600 AC 08/02 IV 0014 Gabapentin 400 MG TID 07/29 1900 AC 08/01 PO 2220 Heparin Sodium 5,000 UNIT Q8 07/29 2200 AC 08/02 (Porcine) SC 0538 Insulin Aspart 0 AT BEDTIME 07/31 2200 AC 07/31 SC 2140 Insulin Aspart 0 TIDAC 07/31 1700 AC 08/01 SC 1752 Insulin Detemir 20 UNITS BID 08/01 1000 AC 08/01 SC 2220 Metoprolol Tartrate 50 MG DAILY 07/29 2000 AC 08/01 PO 0955 Metronidazole 500 MG IQ8 08/01 1600 AC 08/02 N/A 1 UNIT IV 0014 Oxycodone/ 1 TAB Q4-6 PRN 07/29 1845 AC Acetaminophen PO Piperacillin Sod/ 4.5 GM Q6 07/30 1800 DC 08/01 Tazobactam Sod IV 1143 Sodium Chloride 100 ML Polyethylene Glycol 17 GM DAILY 07/31 1000 AC 08/01 PO 0955 Pravastatin Sodium 80 MG 1700 07/30 1700 AC 08/01 PO 1751 Tamsulosin HCl 0.4 MG DAILY 07/29 1900 AC 08/01 PO 0955 Vancomycin HCl 1,000 MG Q12H 08/01 1800 AC 08/02 Dextrose/Water 250 ML IV 0537 Last 24 Hrs of Lab/[place] Results Last 24 Hrs of Labs/[place]: Laboratory Tests 08/02/17 0702: CBC w Diff Pending, WBC Pending, RBC Pending, Hgb Pending, Hct Pending, MCV Pending, MCH Pending, MCHC Pending, RDW Pending, Plt Count Pending, MPV Pending Assessment/Plan Assessment: Mr. Mathis is a 61-year-old male with past medical history of coronary artery disease status post [place] st[place] [address] 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 Morocho, and primary hyperparathyroidism who presents with a left foot infection. Problem list: Uncontrolled diabetes Left foot gangrene and osteomyelitis Plan: XR R foot without evidence of OM. We will not explore R foot as per Podiatry Wound cultures grew MRSA, Pseudomonas susceptible to Zosyn Continue IV Ceftaz, Metronidazole, Vanco as per ID (Pt refused PICC) Will stay in hospital for IV antibiotics for 7 days, today day 2 Continue ASA, metoprolol, pravastatin Repeat XR L foot Accu-Cheks and NovoLog SS Continue Levemir 20 units BID Endo recommendations appreciated Podiatry recommendations appreciated DVT prophylaxis with heparin Consistent carbohydrate 2 diet Full code Problem List: 1. Osteomyelitis of left foot 2. Uncontrolled diabetes mellitus 3. Gangrene of left foot Pain Ratin Pain Location: NA Pain Goal: Remain pain free Pain Plan: NA Tomorrow's Labs & Rationales: none Robert Perdomo MD 08/02/17 1119: Attending MD Review Statement Attending Statement Attending MD Statement: examined this patient, discuss w/resident/PA/SOCIAL PROBLEMS SPECIALIST, agreed w/resident/PA/SOCIAL PROBLEMS SPECIALIST, reviewed EMR data (avail) Attending Assessment/Plan: 61M PMH poorly controlled DM (Hgb A1C 13.3% 06/06) with diabetic neuropathy and nephropathy, primary hyperparathyroidism s/p parathyroidectomy 2017, CAD s/p PCI , BPH admitted for acute osteomyelitis and gas gangrene of the left foot s/p amputation of 2nd toe on 07/29, with non-healing ulcer on right foot, with no evidence of sepsis, cultures growing alpha-Strep, Group B strep, S.aureus, Pseudomonas, and Enterococcus, currently on Vancomycin, Ceftazidime, and Flagyl. Patient is undecided on whether or not he wants a PICC. He has no complaints today and feels well. 1. Acute osteomyelitis of the left foot with gas gangrene secondary to orgamisms listed above 2. Uncontrolled Type 2 IDDM 3. PVD 4. Diabetic polyneuropathy Plan - Continue on general medicine - Continue Vancomycin, Ceftazidime, Flagyl - Follow podiatry and ID recommendations - No further evaluation of the right foot per podiatry - Continue home medications - Monitor fingersticks - DVT PPx
[2017-08-02 08:20] LABS: ABSOLUTE BASOPHIL COUNT 0 /CUMM (0.0-0.2); ABSOLUTE EOSINOPHIL COUNT 0.2 /CUMM (0.0-0.7); ABSOLUTE GRANULOCYTE CT 4.8 /CUMM (1.4-6.5); ABSOLUTE LYMPH COUNT 2.2 /CUMM (1.2-3.4); ABSOLUTE MONOCYTE COUNT 0.7 /CUMM (0.10-0.60); BASOPHIL % 0.4 % (0.0-2.0); EOSINOPHIL % 2.7 % (0-5); GRANULOCYTE % 60.5 % (42.2-75.2); HEMATOCRIT 37.1 % (42-52); MEAN CORPUSCULAR HGB 26.1 PG (27.0-31.0); MEAN CORPUSCULAR HGB CONC 32.8 G/DL (33.0-37.0); MEAN CORPUSCULAR VOLUME 79.7 FL (80.0-94.0); MEAN PLATELET VOLUME 7.1 FL (7.4-10.4); PLATELET COUNT 512 /CUMM (130-400); RBC DISTRIBUTION WIDTH 13.5 % (11.5-14.5); RED BLOOD CELL CT 4.66 /CUMM (4.70-6.10); WHITE BLOOD CELL COUNT 7.9 /CUMM (4.8-10.8)
--- NOTE | 2017-08-02 10:41 | Cons- Cardiology ---
General Information and HPI Consulting Request Date of Consult: 08/02/17 Requested By: Robert Perdomo MD Reason for Consult: Cardiac evaluation in a patient with known coronary artery disease who presents with osteomyelitis. Source of Information: patient, old records Exam Limitations: no limitations History of Present Illness: Beny Mathis is a 61-year-old male who has been in [place] for just a couple of years. He previously was in [facility]. He states he has had a heart attack in 2002 treated with stenting at [facility]. Subsequently, he followed up with cardiology for a year or two but has not seen a milling operator since that time. He states he has had no cardiac problems. However, he has had a lot of diabetic complications including osteomyelitis of his feet. He has had multiple surgeries including some amputations. He has had no complaints of chest pain, shortness of breath, palpitations, dizziness, or syncope. He does have chronic ankle edema which he attributes to his diabetic problems. He is an ex-smoker, having stopped in 2002. He is on antihypertensive medications including lisinopril, metoprolol, aspirin, and pravastatin. He was previously on Plavix as well, but that was stopped probably after a year after his heart attack. At the time of his initial visit, I scheduled him for an echocardiogram that showed good left ventricular systolic function with no regional wall motion abnormalities. We also got a lipid profile on him which showed a cholesterol of 187 and an LDL of 108. He was actually preop for parathyroid surgery due to hyperparathyroidis on that visit. His medical regimen includes aspirin, lisinopril 40 mg daily, metoprolol 50 mg daily, pravastatin 80 mg daily. At his last office visit I ordered a stress test on him, which was a Persantine nuclear stress test done on 06/26/2017 and was negative for ischemia. I cleared him for parathyroid surgery but he is now in for osteomyelitis of his left foot and already had surgery including incision and drainage of necrotic wound of his left foot, which he tolerated well. Since she has been here he has had no cardiac symptoms including chest pain, shortness of breath, palpitations, dizziness, syncope. From a cardiac standpoint he is on atorvastatin, metoprolol, aspirin. His blood pressures have been normal. His BUN and creatinine were elevated on admission but are more normal at this time. His EKG does not show any ischemic changes, just some nonspecific changes. Allergies/Medications Allergies: Coded Allergies: NO KNOWN ALLERGIES (UNKNOWN 01/29/17) Home Med List: Aspirin (Ecotrin*) 81 MG TABLET.DR 1 TAB PO DAILY HEART HEALTH (Reported) Cholecalciferol (Vitamin D3) (Vitamin D) 2,000 UNIT CAPSULE 1 CAP PO DAILY SUPPLEMENT (Reported) Fosinopril Sodium 40 MG TABLET 1 TAB PO DAILY BP (Reported) Gabapentin 400 MG CAPSULE 1 CAP PO TID NERVE PAIN (Reported) Insulin Lispro (Humalog) 100 UNIT/ML CARTRIDGE INSULIN PUMP- VGO (Reported) Metoprolol Tartrate (Lopressor) 50 MG TABLET 1 TAB PO DAILY HEART/BP ( Reported) Oxycodone HCl/Acetaminophen (Percocet 5-325 MG Tablet) 5 MG-325 MG TABLET 1 TAB PO Q4-6 PRN postop pain Pravastatin Sodium 80 MG TABLET 1 TAB PO DAILY HEART HEALTH (Reported) Tamsulosin HCl (Flomax) 0.4 MG CAP.ER.24H 1 CAP PO DAILY URINARY DIFFICULTY ( Reported) Current Medications: Current Medications Sig/Nathan Start time Last Medication Dose Route Stop Time Status Admin Acetaminophen 650 MG Q4P PRN 07/29 1915 AC 07/30 PO 1608 Aspirin Buffered 81 MG DAILY 07/29 1900 AC 08/02 PO 1030 Ceftazidime 2,000 MG IQ8 08/01 1600 AC 08/02 IV 1029 Gabapentin 400 MG TID 07/29 1900 AC 08/02 PO 1030 Heparin Sodium 5,000 UNIT Q8 07/29 2200 AC 08/02 (Porcine) SC 0538 Insulin Aspart 0 AT BEDTIME 07/31 2200 AC 07/31 SC 2140 Insulin Aspart 0 TIDAC 07/31 1700 AC 08/02 SC 1029 Insulin Detemir 20 UNITS BID 08/01 1000 AC 08/02 SC 1030 Metoprolol Tartrate 50 MG DAILY 07/29 2000 AC 08/02 PO 1030 Metronidazole 500 MG IQ8 08/01 1600 AC 08/02 N/A 1 UNIT IV 1029 Oxycodone/ 1 TAB Q4-6 PRN 07/29 1845 AC Acetaminophen PO Piperacillin Sod/ 4.5 GM Q6 07/30 1800 DC 08/01 Tazobactam Sod IV 1143 Sodium Chloride 100 ML Polyethylene Glycol 17 GM DAILY 07/31 1000 AC 08/02 PO 1030 Pravastatin Sodium 80 MG 1700 07/30 1700 AC 08/01 PO 1751 Tamsulosin HCl 0.4 MG DAILY 07/29 1900 AC 08/02 PO 1030 Vancomycin HCl 1,000 MG Q12H 08/01 1800 AC 08/02 Dextrose/Water 250 ML IV 0537 Review of Systems Review of Systems: His only complaint is related to his foot at this time. Past History Travel History Traveled to [place] past 21 day No Medical History Blood Transfusion Hx: No Neurological: peripheral neuropathy EENT: NONE Cardiovascular: CAD (status post stents), hypertension, hyperlipidemia, myocardial infarction, STENTS Respiratory: NONE Gastrointestinal: NONE Hepatic: NONE Renal: NONE Musculoskeletal: osteomyelitis of right 1st, 2nd and 3rd toes OTOEMYLITIS OF L 1ST TOE Psychiatric: NONE Endocrine: diabetes Cancer(s): NONE PSYCHOTHERAPIST COUNSELOR/Reproductive: NONE Surgical History Surgical History: right 1st, 2nd and 3rd toe amputations L FOOT 1ST TOE AMP LASER EYE SURGERY status post 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 Home Services at Home: None Smoking Status: Former Smoker ETOH Use: denies use Illicit Drug Use: denies illicit drug use Functional Ability ADLs Independent: dressing, eating, toileting, bathing. Ambulation: independent IADLs Independent: shopping, housework, finances, food prep, telephone, transportation , medication admin. Exam & Diagnostic Data Vital Signs and I&O Vital Signs Date Time Temp Pulse Resp B/P B/P Pulse O2 O2 Flow FiO2 Mean Ox Delivery Rate 08/02 0653 97.8 72 18 135/79 99 Room Air 08/01 2142 98.9 68 18 139/80 100 Room Air 08/01 1430 98.0 68 18 135/80 100 Room Air Intake & Output 08/02 1600 08/02 0800 08/02 0000 08/01 1600 08/01 0800 08/01 0000 Intake Total 680 500 600 440 500 Output Total 750 700 500 Balance -70 -200 600 -60 500 Intake, IV 200 200 Intake, Oral 480 500 500 240 500 Intake, 100 TPN/PPN Number 0 Bowel Movements Output, Urine 750 700 500 Physical Exam: He is in no distress HEENT exam is normal Chest is clear Heart regular rhythm no murmurs Abdomen benign Extremities left foot bandaged, right foot has good dorsalis pedis pulse Labs/[place] Results: Laboratory Tests 08/02 08/01 0702 0555 Chemistry Sodium (137 - 145 mmol/L) 137 Potassium (3.5 - 5.1 mmol/L) 4.6 Chloride (98 - 107 mmol/L) 100 Carbon Dioxide (22 - 30 mmol/L) 25 Anion Gap (5 - 16) 13 BUN (9 - 20 mg/dL) 14 Creatinine (0.7 - 1.2 mg/dL) 1.1 Estimated GFR (>60 ml/min) > 60 BUN/Creatinine Ratio (7 - 25 %) 12.7 Hematology CBC w Diff NO MAN DIFF REQ WBC (4.8 - 10.8 /CUMM) 7.9 RBC (4.70 - 6.10 /CUMM) 4.66 L Hgb (14.0 - 18.0 G/DL) 12.2 L Hct (42 - 52 %) 37.1 L MCV (80.0 - 94.0 FL) 79.7 L MCH (27.0 - 31.0 PG) 26.1 L MCHC (33.0 - 37.0 G/DL) 32.8 L RDW (11.5 - 14.5 %) 13.5 Plt Count (130 - 400 /CUMM) 512 H MPV (7.4 - 10.4 FL) 7.1 L Gran % (42.2 - 75.2 %) 60.5 Lymphocytes % (20.5 - 51.1 %) 27.8 Monocytes % (1.7 - 9.3 %) 8.6 Eosinophils % (0 - 5 %) 2.7 Basophils % (0.0 - 2.0 %) 0.4 Absolute Granulocytes (1.4 - 6.5 /CUMM) 4.8 Absolute Lymphocytes (1.2 - 3.4 /CUMM) 2.2 Absolute Monocytes (0.10 - 0.60 /CUMM) 0.7 H Absolute Eosinophils (0.0 - 0.7 /CUMM) 0.2 Absolute Basophils (0.0 - 0.2 /CUMM) 0 Diagnostic Data EKG Results `EKG on admission shows sinus rhythm at a rate of 67, inferior Q waves, nonspecific lateral T-wave changes. CXR Results Not done Assessment/Plan Assessment/Plan Mr. Mathis is stable from a cardiac standpoint. His recent testing was reassuring. I would just continue him on his usual cardiac regimen and I will follow him up routinely in the office. Please call for any further cardiology input. Consult Acknowledgment - Thank you for your consult request.
--- NOTE | 2017-08-02 13:20 | PN- Diabetes ---
Assessment/Plan Diabetes Assessment: Mr. Mathis is a 61-year-old male with past medical history of coronary artery disease status post [place] and stents in 2002, diabetes mellitus type 2 complicated by diabetic peripheral neuropathy and diabetic foot infection and primary hyperparathyroidism s/p parathyroid surgery, was admitted for left foot infection and underwent left 2nd toe amputation. He went to OR again on 2017. He was put on Levemir 20 units twice a day, Novolog coverage before meals and Novolog coverage at bedtime. His FSGs were 344, 278, 135, 92. His FSG was 304 in the morning after he had breakfast. But he didn't receive insulin before the breakfast. Plan: continue the current insulin regimen for now; monitor FSGs. diet control; will follow. Subjective Subjective: He has no special complaints this morning. Objective Last 24 Hrs of Vital Signs/I&O Vital Signs Date Time Temp Pulse Resp B/P B/P Pulse O2 O2 Flow FiO2 Mean Ox Delivery Rate 08/02 0653 97.8 72 18 135/79 99 Room Air 08/01 2142 98.9 68 18 139/80 100 Room Air 08/01 1430 98.0 68 18 135/80 100 Room Air Intake & Output 08/02 1600 08/02 0800 08/02 0000 Intake Total 680 500 Output Total 450 750 700 Balance -450 -70 -200 Intake, IV 200 Intake, Oral 480 500 Output, Urine 450 750 700 Findings Pertinent Lab/[place] Results: Laboratory Tests 08/02 0702 Hematology CBC w Diff NO MAN DIFF REQ WBC (4.8 - 10.8 /CUMM) 7.9 RBC (4.70 - 6.10 /CUMM) 4.66 L Hgb (14.0 - 18.0 G/DL) 12.2 L Hct (42 - 52 %) 37.1 L MCV (80.0 - 94.0 FL) 79.7 L MCH (27.0 - 31.0 PG) 26.1 L MCHC (33.0 - 37.0 G/DL) 32.8 L RDW (11.5 - 14.5 %) 13.5 Plt Count (130 - 400 /CUMM) 512 H MPV (7.4 - 10.4 FL) 7.1 L Gran % (42.2 - 75.2 %) 60.5 Lymphocytes % (20.5 - 51.1 %) 27.8 Monocytes % (1.7 - 9.3 %) 8.6 Eosinophils % (0 - 5 %) 2.7 Basophils % (0.0 - 2.0 %) 0.4 Absolute Granulocytes (1.4 - 6.5 /CUMM) 4.8 Absolute Lymphocytes (1.2 - 3.4 /CUMM) 2.2 Absolute Monocytes (0.10 - 0.60 /CUMM) 0.7 H Absolute Eosinophils (0.0 - 0.7 /CUMM) 0.2 Absolute Basophils (0.0 - 0.2 /CUMM) 0
[2017-08-02 14:11] VITALS: BP 124/75
--- NOTE | 2017-08-02 14:17 | PN- Infect Dx ---
Subjective Subjective: Afebrile. He continues to complain of his usual neuropathic pain in both feet. Objective Last 24 Hrs of Vital Signs/I&O Vital Signs Date Time Temp Pulse Resp B/P B/P Pulse O2 O2 Flow FiO2 Mean Ox Delivery Rate 08/02 0653 97.8 72 18 135/79 99 Room Air 08/01 2142 98.9 68 18 139/80 100 Room Air 08/01 1430 98.0 68 18 135/80 100 Room Air Intake & Output 08/02 1600 08/02 0800 08/02 0000 Intake Total 680 500 Output Total 450 750 700 Balance -450 -70 -200 Intake, IV 200 Intake, Oral 480 500 Output, Urine 450 750 700 Physical Exam Other Physical Findings: He appears comfortable in no acute distress Extremities left foot dressing intact Results Last 24 Hours of Lab Results: Laboratory Tests 08/02 0702 Hematology CBC w Diff NO MAN DIFF REQ WBC (4.8 - 10.8 /CUMM) 7.9 RBC (4.70 - 6.10 /CUMM) 4.66 L Hgb (14.0 - 18.0 G/DL) 12.2 L Hct (42 - 52 %) 37.1 L MCV (80.0 - 94.0 FL) 79.7 L MCH (27.0 - 31.0 PG) 26.1 L MCHC (33.0 - 37.0 G/DL) 32.8 L RDW (11.5 - 14.5 %) 13.5 Plt Count (130 - 400 /CUMM) 512 H MPV (7.4 - 10.4 FL) 7.1 L Gran % (42.2 - 75.2 %) 60.5 Lymphocytes % (20.5 - 51.1 %) 27.8 Monocytes % (1.7 - 9.3 %) 8.6 Eosinophils % (0 - 5 %) 2.7 Basophils % (0.0 - 2.0 %) 0.4 Absolute Granulocytes (1.4 - 6.5 /CUMM) 4.8 Absolute Lymphocytes (1.2 - 3.4 /CUMM) 2.2 Absolute Monocytes (0.10 - 0.60 /CUMM) 0.7 H Absolute Eosinophils (0.0 - 0.7 /CUMM) 0.2 Absolute Basophils (0.0 - 0.2 /CUMM) 0 Last 24 Hours of [place] Results: No new cultures Recent Imaging Studies: X-ray of the left foot August 01 status post amputation of the second toe, with the residual bones intact and with no osseous erosion; soft tissue swelling of the forefoot Assessment/Plan ID Impression: Stable, status post delayed primary closure of the open wound of his left foot, with further debridement, presumably of the soft tissues, 2 days ago, now 4 days status post 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 He remains afebrile with a normal white blood, now on Vancomycin, Flagyl and Ceftazidime, which will need to be continued for 5-7 days for a residual soft tissue infection. Suggestion: 1. Further evaluation of the right foot nonhealing wound per Podiatry 2. Decrease Ceftazidime to 1 g IV every 8 hours 3. Continue Vancomycin and Flagyl
[2017-08-02 22:23] VITALS: BP 174/89
[2017-08-02 22:51] VITALS: BP 164/84
--- NOTE | 2017-08-03 05:56 | PN- Housestaff ---
Jose Elias Ricci 08/03/17 0555: Subjective Follow-up For: 1 gangrene left second digit s/p excisional debridement POD 2 2 osteomyelitis left second digit 3 diabetic peripheral neuropathy 4 Uncontrolled diabetes 5. Wound cultures + for MRSA, Enterococcus, Pseudomonas Subjective: No complaints or acute events overnight Review of Systems Constitutional: Reports: see HPI. Objective Last 24 Hrs of Vital Signs/I&O Vital Signs Date Time Temp Pulse Resp B/P B/P Pulse O2 O2 Flow FiO2 Mean Ox Delivery Rate 08/03 0648 97.8 77 18 124/78 98 08/02 2251 164/84 08/02 2223 97.8 70 174/89 100 Room Air 08/02 1411 98.2 65 18 124/75 98 Room Air Intake & Output 08/03 1600 08/03 0800 08/03 0000 Intake Total 950 Output Total 1000 Balance -1000 950 Intake, IV 350 Intake, Oral 600 Output, Urine 1000 Physical Exam General Appearance: Lethargic Cardiovascular: Regular Rate, Normal S1, Normal S2 Lungs: Clear to Auscultation, Normal Air Movement Extremities: No drainage of L foot Current Medications: Current Medications Sig/Nathan Start time Last Medication Dose Route Stop Time Status Admin Acetaminophen 650 MG Q4P PRN 07/29 1915 AC 07/30 PO 1608 Aspirin Buffered 81 MG DAILY 07/29 1900 AC 08/02 PO 1030 Ceftazidime 1,000 MG IQ8 08/03 0000 AC 08/02 IV 2306 Ceftazidime 1,000 MG IQ8 08/02 1600 DC IV Ceftazidime 2,000 MG IQ8 08/01 1600 DC 08/02 IV 1545 Gabapentin 400 MG TID 07/29 1900 AC 08/02 PO 2122 Heparin Sodium 5,000 UNIT Q8 07/29 2200 AC 08/02 (Porcine) SC 2121 Insulin Aspart 0 AT BEDTIME 07/31 2200 AC 08/02 SC 2121 Insulin Aspart 0 TIDAC 07/31 1700 AC 08/02 SC 1203 Insulin Detemir 20 UNITS BID 08/01 1000 AC 08/02 SC 2121 Metoprolol Tartrate 50 MG DAILY 07/29 2000 AC 08/02 PO 1030 Metronidazole 500 MG IQ8 08/01 1600 AC 08/02 N/A 1 UNIT IV 2306 Oxycodone/ 1 TAB Q4-6 PRN 07/29 1845 AC Acetaminophen PO Polyethylene Glycol 17 GM DAILY 07/31 1000 AC 08/02 PO 1030 Pravastatin Sodium 80 MG 1700 07/30 1700 AC 08/02 PO 1700 Tamsulosin HCl 0.4 MG DAILY 07/29 1900 AC 08/02 PO 1030 Vancomycin HCl 1,000 MG Q12H 08/01 1800 AC 08/03 Dextrose/Water 250 ML IV 0605 Assessment/Plan Assessment: Mr. Mathis is a 61-year-old male with past medical history of coronary artery disease status post [place] st[place] [address] 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 Morocho, and primary hyperparathyroidism who presents with a left foot infection. Problem list: Uncontrolled diabetes Left foot gangrene and osteomyelitis Plan: XR R foot without evidence of OM. We will not explore R foot as per Podiatry Wound cultures grew MRSA, Pseudomonas, Enterococcus Continue IV Ceftaz, Metronidazole, Vanco as per ID (Pt refused PICC) Will stay in hospital additional for IV antibiotics for 7 days, day 3/7 Continue ASA, metoprolol, pravastatin Repeat XR L foot shows soft tissue swelling of the forefoot without soft tissue emphysema, s/p amputation Accu-Cheks and NovoLog SS Continue Levemir 20 units BID Endo recommendations appreciated Podiatry recommendations appreciated DVT prophylaxis with heparin Consistent carbohydrate 2 diet Full code Problem List: 1. Osteomyelitis of left foot 2. Uncontrolled diabetes mellitus 3. Gangrene of left foot Pain Ratin Pain Location: NA Pain Goal: Remain pain free Pain Plan: NA Tomorrow's Labs & Rationales: None Topher [facility] 1207: Attending MD Review Statement Attending Statement Attending MD Statement: examined this patient, discuss w/resident/PA/WEEKDAY BABYSITTER, agreed w/resident/PA/WEEKDAY BABYSITTER, reviewed EMR data (avail), discussed with nursing Attending Assessment/Plan: Pt was seen and evaluated by me, chart reviewed and agree with the interval history, exam, and A/P as outlined by the resident --appreciate ID and Endo eval --f/u Podiatry recs --cont IV abx
[2017-08-03 06:48] VITALS: BP 124/78
--- NOTE | 2017-08-03 12:51 | PN- Diabetes ---
Assessment/Plan Diabetes Assessment: Mr. Mathis is a 61-year-old male with past medical history of coronary artery disease status post [place] and stents in 2002, diabetes mellitus type 2 complicated by diabetic peripheral neuropathy and diabetic foot infection and primary hyperparathyroidism s/p parathyroid surgery, was admitted for left foot infection and underwent left 2nd toe amputation. He went to OR again on 2017. The patient is presently eating well. He is on Levemir 20 units twice a day and sliding scale NovoLog. Patient's blood sugars have been up and down. This morning his sugar was 265 and before lunch 286. Plan: Suggest increase Levemir to 24 units twice a day and continue present sliding scale Novolog. Subjective Subjective: Feels okay Review of Systems Constitutional: Denies: chills, fever. Cardiovascular: Denies: chest pain. Gastrointestinal: Denies: abdominal pain, nausea, vomiting. Objective Last 24 Hrs of Vital Signs/I&O Vital Signs Date Time Temp Pulse Resp B/P B/P Pulse O2 O2 Flow FiO2 Mean Ox Delivery Rate 08/03 910 77 12408/03 0911 77 12408/03 0648 97.8 77 18 124 98 08/02 2251 164/84 08/02 2223 97.8 70 174/89 100 Room Air 08/02 1411 98.2 65 18 124 98 Room Air Intake & Output 08/03 1600 08/03 0800 08/03 0000 Intake Total 270 950 Output Total 1000 Balance -730 950 Intake, IV 270 350 Intake, Oral 600 Output, Urine 1000 Vital Signs Date Time Temp Pulse Resp B/P B/P Pulse O2 O2 Flow FiO2 Mean Ox Delivery Rate 08/03 910 77 124/08/03 0911 77 12408/03 0648 97.8 77 18 124/78 98 08/02 2251 164/84 08/02 2223 97.8 70 174/89 100 Room Air 08/02 1411 98.2 65 18 124/75 98 Room Air Intake & Output 08/03 1600 08/03 0800 08/03 0000 Intake Total 270 950 Output Total 1000 Balance -730 950 Intake, IV 270 350 Intake, Oral 600 Output, Urine 1000 Physical Exam General Appearance: alert, awake, comfortable Neck: normal inspection Cardiovascular: regular rate/rhythm Abdomen: normal bowel sounds, soft Current Medications: Current Medications Sig/Nathan Start time Last Medication Dose Route Stop Time Status Admin Acetaminophen 650 MG Q4P PRN 07/29 1915 AC 07/30 PO 1608 Aspirin Buffered 81 MG DAILY 07/29 1900 AC 08/03 PO 0911 Ceftazidime 1,000 MG IQ8 08/03 0000 AC 08/03 IV 0804 Ceftazidime 1,000 MG IQ8 08/02 1600 DC IV Ceftazidime 2,000 MG IQ8 08/01 1600 DC 08/02 IV 1545 Gabapentin 400 MG TID 07/29 1900 AC 08/03 PO 0911 Heparin Sodium 5,000 UNIT Q8 07/29 2200 AC 08/02 (Porcine) SC 2121 Insulin Aspart 0 AT BEDTIME 07/31 2200 AC 08/02 SC 2121 Insulin Aspart 0 TIDAC 07/31 1700 AC 08/03 SC 1219 Insulin Detemir 20 UNITS BID 08/01 1000 AC 08/03 SC 0804 Metoprolol Tartrate 50 MG DAILY 07/29 2000 AC 08/03 PO 0911 Metronidazole 500 MG IQ8 08/01 1600 AC 08/03 N/A 1 UNIT IV 0957 Oxycodone/ 1 TAB Q4-6 PRN 07/29 1845 AC Acetaminophen PO Polyethylene Glycol 17 GM DAILY 07/31 1000 AC 08/03 PO 0911 Pravastatin Sodium 80 MG 1700 07/30 1700 AC 08/02 PO 1700 Tamsulosin HCl 0.4 MG DAILY 07/29 1900 AC 08/03 PO 0911 Vancomycin HCl 1,000 MG Q12H 08/01 1800 AC 08/03 Dextrose/Water 250 ML IV 0605
[2017-08-03 13:59] VITALS: BP 120/74
[2017-08-03 21:50] VITALS: BP 134/78
[2017-08-04 07:08] VITALS: BP 140/73
--- NOTE | 2017-08-04 08:35 | PN- Housestaff ---
Bola WHATLEY,Chad 08/04/17 0835: Subjective Follow-up For: gangrene left second digit s/p excisional debridement POD 4 osteomyelitis left second digit diabetic peripheral neuropathy Uncontrolled diabetes Wound cultures + for MRSA, Enterococcus, Pseudomonas Subjective: Patient was seen and examined at bedside. He is resting comfortably. He had no acute events overnight. He has no new complaints today. Review of Systems Constitutional: Reports: no symptoms. EENTM: Reports: no symptoms. Cardiovascular: Reports: no symptoms. Respiratory: Reports: no symptoms. Gastrointestinal: Reports: no symptoms. Genitourinary: Reports: no symptoms. Musculoskeletal: Reports: no symptoms. Skin: Reports: no symptoms. Objective Last 24 Hrs of Vital Signs/I&O Vital Signs Date Time Temp Pulse Resp B/P B/P Pulse O2 O2 Flow FiO2 Mean Ox Delivery Rate 08/04 0805 73 140/73 08/04 0804 73 140/73 08/04 0708 97.4 73 18 140/73 98 08/03 2150 97.2 72 18 134/78 99 08/03 1359 98.0 66 18 120/74 100 Room Air 08/03 0911 77 124/78 08/03 0911 77 124/78 Intake & Output 08/04 1600 08/04 0800 08/04 0000 Intake Total 390 490 Output Total Balance 390 490 Intake, IV 270 250 Intake, Oral 120 240 Number 0 Bowel Movements Physical Exam General Appearance: Alert, Oriented X3, Cooperative Skin Temp/Moisture Exam: Warm/Dry Sepsis Skin Exam (color): Normal for Ethnicity Cardiovascular: Regular Rate, Normal S1, Normal S2 Lungs: Clear to Auscultation, Normal Air Movement Abdomen: Normal Bowel Sounds, Soft, No Tenderness Neurological: Normal Speech, Normal Tone, Sensation Intact Extremities: L foot bandaged with ALEK, no sign of leakage of drainage Current Medications: Current Medications Sig/Nathan Start time Last Medication Dose Route Stop Time Status Admin Acetaminophen 650 MG Q4P PRN 07/29 1915 AC 07/30 PO 1608 Aspirin Buffered 81 MG DAILY 07/29 1900 AC 08/04 PO 0805 Ceftazidime 1,000 MG IQ8 08/03 0000 AC 08/04 IV 0805 Gabapentin 400 MG TID 07/29 1900 AC 08/04 PO 0805 Heparin Sodium 5,000 UNIT Q8 07/29 2200 AC 08/02 (Porcine) SC 2121 Insulin Aspart 0 AT BEDTIME 07/31 2200 AC 08/03 SC 2205 Insulin Aspart 0 TIDAC 07/31 1700 AC 08/04 SC 0804 Insulin Detemir 24 UNITS BID 08/03 2200 AC 08/04 SC 0804 Insulin Detemir 20 UNITS BID 08/01 1000 DC 08/03 SC 0804 Metoprolol Tartrate 50 MG DAILY 07/29 2000 AC 08/04 PO 0804 Metronidazole 500 MG IQ8 08/01 1600 AC 08/04 N/A 1 UNIT IV 0814 Oxycodone/ 1 TAB Q4-6 PRN 07/29 1845 AC Acetaminophen PO Polyethylene Glycol 17 GM DAILY 07/31 1000 AC 08/04 PO 0804 Pravastatin Sodium 80 MG 1700 07/30 1700 AC 08/03 PO 1557 Tamsulosin HCl 0.4 MG DAILY 07/29 1900 AC 08/04 PO 0805 Vancomycin HCl 1,000 MG Q12H 08/01 1800 AC 08/04 Dextrose/Water 250 ML IV 0632 Assessment/Plan Assessment: Patient is a 61-year-old male with a PMH significant for CAD status post [place] with stents placed in 2002, DM, diabetic neuropathy, primary hyperparathyroidism who presented with a left foot infection. Problem list: Uncontrolled diabetes Left foot gangrene and osteomyelitis Plan: XR R foot without evidence of OM. We will not explore R foot as per Podiatry Wound cultures grew MRSA, Pseudomonas, Enterococcus Continue IV Ceftaz, Metronidazole, Vanco as per ID (Pt refused PICC) Will stay in hospital additional for IV antibiotics for 7 days, day 4/7 Continue ASA, metoprolol, pravastatin Repeat XR L foot shows soft tissue swelling of the forefoot without soft tissue emphysema, s/p amputation Accu-Cheks and NovoLog SS Levemir 24 units BID Endo recommendations appreciated Podiatry recommendations appreciated Discussed with the Pharmacy about changing Vancomycin to NS, it will require specialized mxing of the medicaiton which they would like the team to consider futher based on the shortage of NS DVT prophylaxis with heparin Consistent carbohydrate 2 diet Full code Problem List: 1. Gangrene of left foot 2. Uncontrolled diabetes mellitus Pain Ratin Pain Location: none Pain Goal: Remain pain free Pain Plan: pain pathway Tomorrow's Labs & Rationales: maribel Obando MD,Amir 08/04/17 1031: Attending MD Review Statement Attending Statement Attending MD Statement: examined this patient, discuss w/resident/PA/REGULATORY PROCESS MANAGER, agreed w/resident/PA/REGULATORY PROCESS MANAGER, discussed with family, reviewed EMR data (avail) Attending Assessment/Plan: Pt was seen and evaluated by me, chart reviewed and agree with the interval history, exam, and A/P as outlined by the resident --appreciate ID and Endo eval --f/u Podiatry recs --cont IV abx
--- NOTE | 2017-08-04 14:20 | PN- Diabetes ---
Assessment/Plan Diabetes Assessment: The patient feels okay. He states he is only eating what they give him in the hospital. His sugars were high this morning before breakfast but before lunch and went down to 164. Plan: Suggest continue the same insulin. His vancomycin infusion currently contains dextrose. Consider mixing the vancomycin in normal saline if possible. Subjective Subjective: Feels okay Review of Systems Constitutional: Denies: chills, fever. Cardiovascular: Denies: chest pain. Respiratory: Denies: cough, short of breath. Gastrointestinal: Denies: nausea, vomiting. Objective Last 24 Hrs of Vital Signs/I&O Vital Signs Date Time Temp Pulse Resp B/P B/P Pulse O2 O2 Flow FiO2 Mean Ox Delivery Rate 08/04 0805 73 140/73 08/04 0804 73 140/73 08/04 0708 97.4 73 18 140/73 98 08/03 2150 97.2 72 18 134/78 99 Intake & Output 08/04 1600 08/04 0800 08/04 0000 Intake Total 390 490 Output Total Balance 390 490 Intake, IV 270 250 Intake, Oral 120 240 Number 0 Bowel Movements Vital Signs Date Time Temp Pulse Resp B/P B/P Pulse O2 O2 Flow FiO2 Mean Ox Delivery Rate 08/04 0805 73 140/73 18 0804 73 140/73 08/04 0708 97.4 73 18 140/73 98 08/03 2150 97.2 72 18 134/78 99 Intake & Output 08/04 1600 08/04 0800 08/04 0000 Intake Total 390 490 Output Total Balance 390 490 Intake, IV 270 250 Intake, Oral 120 240 Number 0 Bowel Movements Physical Exam General Appearance: alert, awake, comfortable Neck: normal inspection Respiratory: normal breath sounds Cardiovascular: regular rate/rhythm Abdomen: normal bowel sounds Extremities: left foot bandaged Current Medications: Current Medications Sig/Nathan Start time Last Medication Dose Route Stop Time Status Admin Acetaminophen 650 MG Q4P PRN 07/29 1915 AC 07/30 PO 1608 Aspirin Buffered 81 MG DAILY 07/29 190 AC 08/04 PO 0805 Ceftazidime 1,000 MG IQ8 08/03 0000 AC 08/04 IV 0805 Gabapentin 400 MG TID 07/29 190 AC 08/04 PO 0805 Heparin Sodium 5,000 UNIT Q8 07/290 AC 08/02 (Porcine) SC 212 Insulin Aspart 0 AT BEDTIME 07/31 2199 AC 08/03 SC 2205 Insulin Aspart 0 TIDAC 07/31 1700 AC 08/04 SC 1249 Insulin Detemir 24 UNITS BID 08/03 2200 AC 08/04 SC 0804 Insulin Detemir 20 UNITS BID 08/01 1000 DC 08/03 SC 0804 Metoprolol Tartrate 50 MG DAILY 07/29 2000 AC 08/04 PO 0804 Metronidazole 500 MG IQ8 08/01 1600 AC 08/04 N/A 1 UNIT IV 0814 Oxycodone/ 1 TAB Q4-6 PRN 07/29 1845 AC Acetaminophen PO Polyethylene Glycol 17 GM DAILY 07/31 1000 AC 08/04 PO 0804 Pravastatin Sodium 80 MG 1700 07/30 1700 AC 08/03 PO 1557 Tamsulosin HCl 0.4 MG DAILY 07/29 1900 AC 08/04 PO 0805 Vancomycin HCl 1,000 MG Q12H 08/01 1800 AC 08/04 Dextrose/Water 250 ML IV 0632
[2017-08-04 14:50] VITALS: BP 138/85
[2017-08-04 23:18] VITALS: BP 156/72
[2017-08-05 06:17] VITALS: BP 126/76
--- NOTE | 2017-08-05 07:17 | PN- Housestaff ---
Jose Elias Ricci 08/05/17 0717: Subjective Follow-up For: gangrene left second digit s/p excisional debridement POD 4 osteomyelitis left second digit diabetic peripheral neuropathy Uncontrolled diabetes Wound cultures + for MRSA, Enterococcus, Pseudomonas Subjective: No complaints or acute events overnight Review of Systems Constitutional: Reports: see HPI. Objective Last 24 Hrs of Vital Signs/I&O Vital Signs Date Time Temp Pulse Resp B/P B/P Pulse O2 O2 Flow FiO2 Mean Ox Delivery Rate 08/05 0856 126/76 08/05 0856 126/76 08/05 0617 98.0 71 20 126/76 98 08/04 2318 98.6 70 18 156/72 100 Room Air 08/04 1450 98.1 66 20 138/85 100 Room Air Intake & Output 08/05 1600 08/05 0800 08/05 0000 Intake Total 120 800 Output Total Balance 120 800 Intake, IV 650 Intake, Oral 120 150 Physical Exam General Appearance: Alert, Oriented X3, Cooperative, No Acute Distress Cardiovascular: Regular Rate, Normal S1, Normal S2 Lungs: Clear to Auscultation, Normal Air Movement Extremities: L foot dressing intact without drainage Current Medications: Current Medications Sig/Nathan Start time Last Medication Dose Route Stop Time Status Admin Acetaminophen 650 MG Q4P PRN 07/29 1915 AC 07/30 PO 1608 Aspirin Buffered 81 MG DAILY 07/29 1900 AC 08/05 PO 0856 Ceftazidime 1,000 MG IQ8 08/03 0000 AC 08/05 IV 0855 Gabapentin 400 MG TID 07/29 1900 AC 08/05 PO 0856 Heparin Sodium 5,000 UNIT Q8 07/29 2200 AC 08/05 (Porcine) OK 0552 Insulin Aspart 0 AT BEDTIME 07/31 2200 AC 08/04 OK 2230 Insulin Aspart 0 TIDAC 07/31 1700 AC 08/05 SC 0855 Insulin Detemir 28 UNITS BID 08/05 1000 AC 08/05 OK 1035 Insulin Detemir 24 UNITS BID 08/03 2200 DC 08/04 OK 2250 Metoprolol Tartrate 50 MG DAILY 07/29 2000 AC 08/05 PO 0856 Metronidazole 500 MG IQ8 08/01 1600 AC 08/05 N/A 1 UNIT IV 0855 Oxycodone/ 1 TAB Q4-6 PRN 07/29 1845 AC Acetaminophen PO Polyethylene Glycol 17 GM DAILY 07/31 1000 AC 08/05 PO 0856 Pravastatin Sodium 80 MG 1700 07/30 1700 AC 08/04 PO 1604 Tamsulosin HCl 0.4 MG DAILY 07/29 1900 AC 08/05 PO 0856 Vancomycin HCl 1,000 MG Q12H 08/05 1800 AC Sodium Chloride 250 ML IV Vancomycin HCl 1,000 MG Q12H 08/01 1800 DC 08/05 Dextrose/Water 250 ML IV 0537 Last 24 Hrs of Lab/[place] Results Last 24 Hrs of Labs/Mics: Laboratory Tests 08/05/17 0610: CBC w Diff NO MAN DIFF REQ, RBC 4.64 L, MCV 81.0, MCH 26.5 L, MCHC 32.7 L, RDW 13.7, MPV 7.2 L, Gran % 58.7, Lymphocytes % 28.4, Monocytes % 9.1, Eosinophils % 3.2, Basophils % 0.6, Absolute Granulocytes 3.6, Absolute Lymphocytes 1.7, Absolute Monocytes 0.6, Absolute Eosinophils 0.2, Absolute Basophils 0 Assessment/Plan Assessment: Patient is a 61-year-old male with a PMH significant for CAD status post [place] with stents placed in 2002, DM, diabetic neuropathy, primary hyperparathyroidism who presented with a left foot infection. Problem list: Uncontrolled diabetes Left foot gangrene and osteomyelitis Plan: XR R foot without evidence of OM. We will not explore R foot as per Podiatry Wound cultures grew MRSA, Pseudomonas, Enterococcus Continue IV Ceftaz, Metronidazole, Vanco as per ID (Pt refused PICC) Will stay in hospital additional for IV antibiotics for 7 days, day 5/7 Continue ASA, metoprolol, pravastatin Repeat XR L foot shows soft tissue swelling of the forefoot without soft tissue emphysema, s/p amputation Accu-Cheks and NovoLog SS Increase Levemir to 28 units BID Endo recommendations appreciated Podiatry recommendations appreciated DVT prophylaxis with heparin Consistent carbohydrate 2 diet Full code Problem List: 1. Osteomyelitis of left foot 2. Uncontrolled diabetes mellitus 3. Gangrene of left foot Pain Ratin Pain Location: NA Pain Goal: Remain pain free Pain Plan: NA Tomorrow's Labs & Rationales: none Robert Perdomo MD 08/05/17 1400: Attending MD Review Statement Attending Statement Attending MD Statement: examined this patient, discuss w/resident/PA/HEAVY EQUIPMENT ENGINE MECHANIC, agreed w/resident/PA/HEAVY EQUIPMENT ENGINE MECHANIC, reviewed EMR data (avail) Attending Assessment/Plan: Doing well, will continue IV antibiotics for another two days and then discharge home, continue current management
--- NOTE | 2017-08-05 08:34 | PN- Diabetes ---
Assessment/Plan Diabetes Assessment: Mr. Mathis is a 61-year-old male with past medical history of coronary artery disease status post [place] and stents in 2002, diabetes mellitus type 2 complicated by diabetic peripheral neuropathy and diabetic foot infection and primary hyperparathyroidism s/p parathyroid surgery, was admitted for left foot infection and underwent left 2nd toe amputation. He went to OR again on 2017. He was put on Levemir 24 units twice a day, Novolog coverage before meals and Novolog coverage at bedtime. His FSGs were 315, 164, 248, 332 and 331. He had several cookies overnight. Plan: 1. diet control; 2. increase Levemir to 28 units twice a day; 3. increase novolog coverage before meals; detail see the inpatient DM order; 4. monitor FSGs. will follow. Inpatient Diabetes Orders Before Each Meal: Bolus Insulin: Novolog < 80 mg/dl: no coverage 80-100 mg/dl: 10 units 101-120 mg/dl: 10 units 121-150 mg/dl: 10 units 151-200 mg/dl: 12 units 201-250 mg/dl: 14 units 251-300 mg/dl: 16 units 301-350 mg/dl: 18 units 351-400 mg/dl: 20 units > 400 mg/dl: 22 units Subjective Subjective: He feels okay; but his glucose levels were not controlled. Objective Last 24 Hrs of Vital Signs/I&O Vital Signs Date Time Temp Pulse Resp B/P B/P Pulse O2 O2 Flow FiO2 Mean Ox Delivery Rate 08/05 0617 98.0 71 20 126/76 98 08/04 2318 98.6 70 18 156/72 100 Room Air 08/04 1450 98.1 66 20 138/85 100 Room Air Intake & Output 08/05 1600 08/05 0800 08/05 0000 Intake Total 120 800 Output Total Balance 120 800 Intake, IV 650 Intake, Oral 120 150 Findings Pertinent Lab/[place] Results: Laboratory Tests 08/05 06 Hematology CBC w Diff Pending WBC Pending RBC Pending Hgb Pending Hct Pending MCV Pending MCH Pending MCHC Pending RDW Pending Plt Count Pending MPV Pending
[2017-08-05 09:29] LABS: ABSOLUTE BASOPHIL COUNT 0 /CUMM (0.0-0.2); ABSOLUTE EOSINOPHIL COUNT 0.2 /CUMM (0.0-0.7); ABSOLUTE GRANULOCYTE CT 3.6 /CUMM (1.4-6.5); ABSOLUTE LYMPH COUNT 1.7 /CUMM (1.2-3.4); ABSOLUTE MONOCYTE COUNT 0.6 /CUMM (0.10-0.60); BASOPHIL % 0.6 % (0.0-2.0); EOSINOPHIL % 3.2 % (0-5); GRANULOCYTE % 58.7 % (42.2-75.2); HEMATOCRIT 37.6 % (42-52); MEAN CORPUSCULAR HGB 26.5 PG (27.0-31.0); MEAN CORPUSCULAR HGB CONC 32.7 G/DL (33.0-37.0); MEAN PLATELET VOLUME 7.2 FL (7.4-10.4); PLATELET COUNT 561 /CUMM (130-400); RBC DISTRIBUTION WIDTH 13.7 % (11.5-14.5); RED BLOOD CELL CT 4.64 /CUMM (4.70-6.10); WHITE BLOOD CELL COUNT 6.1 /CUMM (4.8-10.8)
[2017-08-05 14:24] VITALS: BP 140/82
--- NOTE | 2017-08-05 15:04 | PN- Infect Dx ---
Subjective Subjective: Afebrile without complaints Objective Last 24 Hrs of Vital Signs/I&O Vital Signs Date Time Temp Pulse Resp B/P B/P Pulse O2 O2 Flow FiO2 Mean Ox Delivery Rate 08/05 1424 98.3 67 20 140/82 98 Room Air 08/05 0856 126/76 08/05 0856 126/76 08/05 0617 98.0 71 20 126/76 98 08/04 2318 98.6 70 18 156/72 100 Room Air Intake & Output 08/05 1600 08/05 0800 08/05 0000 Intake Total 2190 120 800 Output Total Balance 2190 120 800 Intake, IV 150 650 Intake, Oral 2040 120 150 Number 1 Bowel Movements Physical Exam Other Physical Findings: He appears comfortable in no acute distress Extremities left foot wound clean, with no erythema, warmth or tenderness; left third toe swollen, with no erythema or tenderness; pulses 2+ and equal Results Last 24 Hours of Lab Results: Laboratory Tests 08/05 0610 Hematology CBC w Diff NO MAN DIFF REQ WBC (4.8 - 10.8 /CUMM) 6.1 RBC (4.70 - 6.10 /CUMM) 4.64 L Hgb (14.0 - 18.0 G/DL) 12.3 L Hct (42 - 52 %) 37.6 L MCV (80.0 - 94.0 FL) 81.0 MCH (27.0 - 31.0 PG) 26.5 L MCHC (33.0 - 37.0 G/DL) 32.7 L RDW (11.5 - 14.5 %) 13.7 Plt Count (130 - 400 /CUMM) 561 H MPV (7.4 - 10.4 FL) 7.2 L Gran % (42.2 - 75.2 %) 58.7 Lymphocytes % (20.5 - 51.1 %) 28.4 Monocytes % (1.7 - 9.3 %) 9.1 Eosinophils % (0 - 5 %) 3.2 Basophils % (0.0 - 2.0 %) 0.6 Absolute Granulocytes (1.4 - 6.5 /CUMM) 3.6 Absolute Lymphocytes (1.2 - 3.4 /CUMM) 1.7 Absolute Monocytes (0.10 - 0.60 /CUMM) 0.6 Absolute Eosinophils (0.0 - 0.7 /CUMM) 0.2 Absolute Basophils (0.0 - 0.2 /CUMM) 0 Last 24 Hours of [place] Results: No new cultures Assessment/Plan ID Impression: Stable, with temperatures and white blood cell count remaining normal, on Vancomycin, Flagyl and Ceftazidime for a residual soft tissue infection now 5 days status post delayed primary closure of the open wound of his left foot, with further debridement, presumably of the soft tissues, and 1 week status post amputation of the left second toe for a polymicrobial osteomyelitis, with no residual osteomyelitis felt to be present. Suggestion: 1. Continue Vancomycin, Flagyl and Ceftazidime
[2017-08-05 21:56] VITALS: BP 154/82
[2017-08-06 06:47] VITALS: BP 146/81
--- NOTE | 2017-08-06 07:38 | PN- Housestaff ---
Jose Elias Ricci 08/06/17 0737: Subjective Follow-up For: gangrene left second digit s/p excisional debridement POD 4 osteomyelitis left second digit diabetic peripheral neuropathy Uncontrolled diabetes Wound cultures + for MRSA, Enterococcus, Pseudomonas Subjective: No complaints or acute events overnight Review of Systems Constitutional: Reports: see HPI. Objective Last 24 Hrs of Vital Signs/I&O Vital Signs Date Time Temp Pulse Resp B/P B/P Pulse O2 O2 Flow FiO2 Mean Ox Delivery Rate 08/06 0647 97.7 67 20 146/81 100 Room Air 08/05 2156 97.4 73 18 154/82 98 Room Air 08/05 1424 98.3 67 20 140/82 98 Room Air Intake & Output 08/06 1600 08/06 0800 08/06 0000 Intake Total 250 490 Output Total 800 250 Balance -550 240 Intake, IV 250 250 Intake, Oral 240 Number 0 Bowel Movements Output, Urine 800 250 Physical Exam General Appearance: Alert, Oriented X3, Cooperative, No Acute Distress Cardiovascular: Regular Rate, Normal S1, Normal S2 Lungs: Clear to Auscultation, Normal Air Movement Extremities: Left foot dressing intact without drainage Current Medications: Current Medications Sig/Nathan Start time Last Medication Dose Route Stop Time Status Admin Acetaminophen 650 MG Q4P PRN 07/29 1915 AC 07/30 PO 1608 Aspirin Buffered 81 MG DAILY 07/29 1900 AC 08/05 PO 0856 Ceftazidime 1,000 MG IQ8 08/03 0000 AC 08/06 IV 0852 Gabapentin 400 MG TID 07/29 1900 AC 08/05 PO 2146 Heparin Sodium 5,000 UNIT Q8 07/29 2200 AC 08/05 (Porcine) [place] 0552 Insulin Aspart 0 AT BEDTIME 07/31 2200 AC 08/04 [place] 2230 Insulin Aspart 0 TIDAC 07/31 1700 AC 08/06 [place] 0852 Insulin Detemir 28 UNITS BID 08/05 1000 AC 08/05 [place] 2145 Metoprolol Tartrate 50 MG DAILY 07/29 2000 AC 08/05 PO 0856 Metronidazole 500 MG IQ8 08/01 1600 AC 08/06 N/A 1 UNIT IV 0853 Oxycodone/ 1 TAB Q4-6 PRN 07/29 1845 AC Acetaminophen PO Polyethylene Glycol 17 GM DAILY 07/31 1000 AC 08/05 PO 0856 Pravastatin Sodium 80 MG 1700 07/30 1700 AC 08/05 PO 1644 Tamsulosin HCl 0.4 MG DAILY 07/29 1900 AC 08/05 PO 0856 Vancomycin HCl 1,000 MG Q12H 08/05 1800 AC 08/06 Sodium Chloride 250 ML IV 0604 Assessment/Plan Assessment: Patient is a 61-year-old male with a PMH significant for CAD status post [place] with stents placed in 2002, DM, diabetic neuropathy, primary hyperparathyroidism who presented with a left foot infection. Problem list: Uncontrolled diabetes Left foot gangrene and osteomyelitis Plan: XR R foot without evidence of OM. We will not explore R foot as per Podiatry Wound cultures grew MRSA, Pseudomonas, Enterococcus Continue IV Ceftaz, Metronidazole, Vanco as per ID (Pt refused PICC) Will stay in hospital additional for IV antibiotics for 7 days, day 6 Continue ASA, metoprolol, pravastatin Repeat XR L foot shows soft tissue swelling of the forefoot without soft tissue emphysema, s/p amputation Accu-Cheks and NovoLog SS continue Levemir BID Endo recommendations appreciated Podiatry recommendations appreciated ID recommendations appreciated DVT prophylaxis with heparin Consistent carbohydrate 2 diet Full code Problem List: 1. Osteomyelitis of left foot 2. Uncontrolled diabetes mellitus 3. Gangrene of left foot Pain Ratin Pain Location: NA Pain Goal: Remain pain free Pain Plan: NA Tomorrow's Labs & Rationales: none Robert Perdomo MD 08/06/17 1101: Attending MD Review Statement Attending Statement Attending MD Statement: examined this patient, discuss w/resident/PA/SAWING AND ASSEMBLY SUPERVISOR, agreed w/resident/PA/SAWING AND ASSEMBLY SUPERVISOR, reviewed EMR data (avail) Attending Assessment/Plan: 61M PMH poorly controlled DM (Hgb A1C 13.3% 06/06) with diabetic neuropathy and nephropathy, primary hyperparathyroidism s/p parathyroidectomy 2017, CAD s/p PCI , BPH admitted for acute osteomyelitis and gas gangrene of the left foot s/p amputation of 2nd toe on 07/29, with non-healing ulcer on right foot, with no evidence of sepsis, cultures growing alpha-Strep, Group B strep, S.aureus, Pseudomonas, and Enterococcus, currently on Vancomycin, Ceftazidime, and Flagyl. 1. Acute osteomyelitis of the left foot with gas gangrene secondary to orgamisms listed above 2. Uncontrolled Type 2 IDDM 3. PVD 4. Diabetic polyneuropathy Plan - Continue on general medicine - Continue Vancomycin, Ceftazidime, Flagyl - Follow podiatry and ID recommendations - No further evaluation of the right foot per podiatry - Continue home medications - Monitor fingersticks - DVT PPx - Anticipated discharge tomorrow on no antibiotics, can be discharged after receiving morning doses of his 3 antibiotics
--- NOTE | 2017-08-06 12:48 | PN- Diabetes ---
Assessment/Plan Diabetes Assessment: Mr. Mathis is a 61-year-old male with past medical history of coronary artery disease status post [place] and stents in 2002, diabetes mellitus type 2 complicated by diabetic peripheral neuropathy and diabetic foot infection and primary hyperparathyroidism s/p parathyroid surgery, was admitted for left foot infection and underwent left 2nd toe amputation. He went to OR again on 2017. Levemir was increased to 28 units twice a day; Novolog coverage before meals was adjusted again on 08/05/2017. In addition, he is on Novolog coverage at bedtime. His FSGs were 294, 230, 144 and 98. Plan: continue the current insulin regimen for now; monitor FSGs. will follow. Subjective Subjective: He feels okay this morning. Objective Last 24 Hrs of Vital Signs/I&O Vital Signs Date Time Temp Pulse Resp B/P B/P Pulse O2 O2 Flow FiO2 Mean Ox Delivery Rate 08/06 1117 65 142/80 08/06 1117 65 142/80 08/06 0647 97.7 67 20 146/81 100 Room Air 08/05 2156 97.4 73 18 154/82 98 Room Air 08/05 1424 98.3 67 20 140/82 98 Room Air Intake & Output 08/06 1600 08/06 0800 08/06 0000 Intake Total 250 490 Output Total 800 250 Balance -550 240 Intake, IV 250 250 Intake, Oral 240 Number 0 Bowel Movements Output, Urine 800 250
[2017-08-06 14:32] VITALS: BP 138/72
--- NOTE | 2017-08-06 16:06 | Discharge Summary ---
Visit Information Visit Dates Admission Date: 07/29/17 Discharge Date: 08/07/17 Hospital Course Course Attending Physician: Robert Perdomo MD Primary Care Physician: Patient Has No Primary Care Dr Hospital Course: Mr. Mathis is a 61-year-old male with a PMH significant for CAD status post [place] with stents placed in 2002, DM, diabetic neuropathy, primary hyperparathyroidism who was admitted for to general medical floor for Uncontrolled diabetes, Left foot gangrene with Osteomyelitis. Infectious diseases, Podiatry, Endocrinology were consulted. Imaging was consistent with Osteomyelitis. His wound cultures grew MRSA, Pseudomonas, Enterococcus placed on a couse of antibiotics IV Ceftazidime, Metronidazole, Vancomycin for 7 days because no adequate outpatient oral substitution and he refused a peripheral insertion central catheter due to history of keloids. We continued his aspirin, metoprolol, pravastatin. He remained stable during his hospital course. We performed accu-cheks. We administered NovoLog on a sliding scale and Levemir. He was discharged home with 15U Lantus to be added to his home regimen. Allergies: Coded Allergies: NO KNOWN ALLERGIES (UNKNOWN 01/29/17) Pertinent Lab Results: 07/29/17-1345 XRY-FOOT TWO VIEWS, LEFT IMPRESSION: 1. Soft tissue dressing overlying the 2nd and 3rd digits limiting evaluation. 2. Soft tissue swelling of the 2nd digit, with the lucencies suggesting air in the soft tissues. Apparent irregularity of the tip of the 2nd distal phalanx, which could be related to osteomyelitis or could be related to overlapping densities. Further evaluation with MRI as clinically warranted. 07/30/17-1700 XRY-FOOT TWO VIEWS RIGHT FINDINGS: As seen on the prior study, the first, second, and third toes are absent along with much of the distal aspects of the fourth, second, and third metatarsals. There is soft tissue swelling of the stump. Linear lucency at the distal margin of the stump may correspond to air within an ulceration. No specific findings of underlying osseous myelitis identified. Specifically, no findings of progressive osteolysis or osteopenia are appreciated. IMPRESSION: Soft tissue swelling and possible ulceration at the site of prior amputation of the first, second, and third toes. No specific radiographic findings of osteomyelitis are identified. Consider correlation with MRI if additional specificity and sensitivity are clinically warranted. 08/01/17 XRY-FOOT COMPLETE, LEFT FINDINGS: Surgical change from remote amputation through the shaft of the 1st metatarsal. There is been recent amputation of the second toe at the level of the metatarsophalangeal joint. The residual bones of the foot are intact; no osseous erosion or aggressive periostitis. Soft tissues are swollen in the forefoot. No soft tissue emphysema or radiopaque foreign body. IMPRESSION: 1. Status post recent amputation of the second toe through the MTP joint. 2. Soft tissue swelling of the forefoot without soft tissue emphysema. Disposition Summary Disposition Principal Diagnosis: L foot osteomyelitis Additional Diagnosis: L foot gangrene Uncontrolled Diabetes Discharge Disposition: home or self care Discharge Instructions General Discharge Information Code Status: Full Code Patient's Diet: Diabetic Patient's Activity: Partial weight bearing Follow-Up Instructions/Appts: Follow up with your Veneer Press Operator upon discharge Follow up with your Edge Runner within 1 week for insulin management Follow up with your PCP within 1-2 weeks after discharge Medications at Discharge Discharge Medications: Continue taking these medications: Tamsulosin HCl (Flomax) 0.4 MG CAP.ER.24H 1 Capsule ORAL DAILY Days = 30 Comments: Last Take: 08/07/17 Time: 09:15 AM Fosinopril Sodium (Fosinopril Sodium) 40 MG TABLET 1 Tablet ORAL DAILY Days = 30 Comments: HELD- NOT GIVEN IN HOSPITAL Pravastatin Sodium (Pravastatin Sodium) 80 MG TABLET 1 Tablet ORAL DAILY Days = 30 Comments: Last Taken: 08/06/17 Time: 5:30 PM Aspirin (Ecotrin*) 81 MG TABLET.DR 1 Tablet ORAL DAILY Days = 30 Comments: Last Taken: 08/07/17 Time: 0915 AM Insulin Lispro (Humalog) 100 UNIT/ML CARTRIDGE Units Inject into fatty tissue As Directed Comments: NOT GIVEN, NOVOLIN INSULIN WAS GIVEN WITH MEALS Metoprolol Tartrate (Lopressor) 50 MG TABLET 1 Tablet ORAL DAILY Comments: Last Taken: 08/07/17 Time: 0915 AM Gabapentin (Gabapentin) 400 MG CAPSULE 1 Capsule ORAL THREE TIMES DAILY Comments: Last Taken:08/07/17 Time:9:15 AM Cholecalciferol (Vitamin D3) (Vitamin D) 2,000 UNIT CAPSULE 1 Capsule ORAL DAILY Comments: NOT GIVEN IN HOSPITAL Oxycodone HCl/Acetaminophen (Percocet 5-325 MG Tablet) 5 MG-325 MG TABLET 1 Tablet ORAL EVERY 4-6 HOURS as needed for postop pain Qty = 20 Comments: NOT GIVEN IN HOSPITAL Start taking the following new medications: Insulin Glargine,Hum.rec.anlog (Lantus Solostar) 100 UNIT/ML (3 ML) INSULN.PEN 15 Unit Inject into fatty tissue Every night Qty = 15 No Refills Copies To: Nate Mcdonough DPM; Tyrone Pfeiffer MD Qty = 15 No Refills Copies To: Nate Mcdonough DPM; Tyrone Pfeiffer MD
[2017-08-06 21:42] VITALS: BP 148/76
[2017-08-07 06:16] VITALS: BP 128/78
--- NOTE | 2017-08-07 07:33 | PN- Housestaff ---
Jose Elias Ricci 08/07/17 0732: Subjective Follow-up For: gangrene left second digit s/p excisional debridement POD 5 osteomyelitis left second digit diabetic peripheral neuropathy Uncontrolled diabetes Wound cultures + for MRSA, Enterococcus, Pseudomonas Subjective: No complaints or acute event overnight Review of Systems Constitutional: Reports: see HPI. Objective Last 24 Hrs of Vital Signs/I&O Vital Signs Date Time Temp Pulse Resp B/P B/P Pulse O2 O2 Flow FiO2 Mean Ox Delivery Rate 08/07 0915 78 134/82 08/07 0915 78 134/82 08/07 0616 98.4 72 20 128/78 95 Room Air 08/06 2200 20 08/06 2142 98.4 77 148/76 98 Room Air 08/06 1432 98.0 67 20 138/72 96 Room Air 08/06 1117 65 142/80 08/06 1117 65 142/80 Intake & Output 08/07 1600 08/07 0800 08/07 0000 Intake Total 450 240 Output Total 500 Balance -50 240 Intake, IV 390 Intake, Oral 60 240 Number 0 Bowel Movements Output, Urine 500 Physical Exam General Appearance: Alert, Oriented X3, Cooperative, No Acute Distress Skin: No Rashes, No Breakdown Cardiovascular: Regular Rate, Normal S1, Normal S2 Lungs: Clear to Auscultation, Normal Air Movement Abdomen: Normal Bowel Sounds, Soft, No Tenderness Extremities: L foot dressing intact without drainage Current Medications: Current Medications Sig/Nathan Start time Last Medication Dose Route Stop Time Status Admin Acetaminophen 650 MG Q4P PRN 07/29 1915 AC 07/30 PO 1608 Aspirin Buffered 81 MG DAILY 07/29 1900 AC 08/07 PO 0915 Ceftazidime 1,000 MG IQ8 08/03 0000 AC 08/07 IV 0827 Gabapentin 400 MG TID 07/29 190 AC 08/07 PO 0915 Heparin Sodium 5,000 UNIT Q8 07/290 AC 08/05 (Porcine) [place] 0552 Insulin Aspart 0 AT BEDTIME 07/31 2199 AC 08/04 SC 2230 Insulin Aspart 0 TIDAC 07/31 1700 AC 08/07 SC 0827 Insulin Detemir 28 UNITS BID 08/05 1000 AC 08/07 SC 0914 Metoprolol Tartrate 50 MG DAILY 07/29 2000 AC 08/07 PO 0915 Metronidazole 500 MG IQ8 08/01 1600 AC 08/07 N/A 1 UNIT IV 0827 Oxycodone/ 1 TAB Q4-6 PRN 07/29 1845 AC Acetaminophen PO Polyethylene Glycol 17 GM DAILY 07/31 1000 AC 08/06 PO 1117 Pravastatin Sodium 80 MG 1700 07/30 1700 AC 08/06 PO 1730 Tamsulosin HCl 0.4 MG DAILY 07/29 1900 AC 08/07 PO 0915 Vancomycin HCl 1,000 MG Q12H 08/05 1800 AC 08/07 Sodium Chloride 250 ML IV 0556 Assessment/Plan Assessment: Patient is a 61-year-old male with a PMH significant for CAD status post [place] with stents placed in 2002, DM, diabetic neuropathy, primary hyperparathyroidism who presented with a left foot infection. Problem list: Uncontrolled diabetes Left foot gangrene and osteomyelitis Plan: Wound cultures grew MRSA, Pseudomonas, Enterococcus Patient has completed couse of antibiotics IV Ceftaz, Metronidazole, Vanco as per ID (Pt refused PICC), day 11/23. Continue ASA, metoprolol, pravastatin Accu-Cheks and NovoLog SS continue Levemir BID As per Endo 15U Lantus to be added to his current regimen upon discharge Endo recommendations appreciated Podiatry recommendations appreciated ID recommendations appreciated DVT prophylaxis with heparin Consistent carbohydrate 2 diet Full code Problem List: 1. Osteomyelitis of left foot 2. Uncontrolled diabetes mellitus 3. Gangrene of left foot Pain Ratin Pain Location: NA Pain Goal: Remain pain free Pain Plan: NA Tomorrow's Labs & Rationales: none Edenilson WHATLEY,Arlene 08/07/17 1357: Attending MD Review Statement Attending Statement Attending MD Statement: examined this patient, discuss w/resident/PA/FINISHER BRUSH, agreed w/resident/PA/FINISHER BRUSH, discussed with family, discussed with nursing, discussed with case mgmt, reviewed images Attending Assessment/Plan: Pt is doing well and eager to leave as soon as possible. He understands that he 's completed his antibiotic course here. He was treated for polymicrobial osteo -and had the amputation done. He finished Vanco, ceftaz, Flagyl for residual soft tissue infection and is stable to leave with close outpatient follow-up with Dr. Mcdonough and Dr. woodall.
[2017-08-07 09:15] VITALS: BP 134/82
--- NOTE | 2017-08-07 10:51 | PN- Infect Dx ---
Subjective Subjective: Afebrile without complaints Objective Last 24 Hrs of Vital Signs/I&O Vital Signs Date Time Temp Pulse Resp B/P B/P Pulse O2 O2 Flow FiO2 Mean Ox Delivery Rate 08/07 0915 78 134/82 08/07 0915 78 134/82 08/07 0616 98.4 72 20 128/78 95 Room Air 08/06 2200 20 08/06 2142 98.4 77 148/76 98 Room Air 08/06 1432 98.0 67 20 138/72 96 Room Air 08/06 1117 65 142/80 08/06 1117 65 142/80 Intake & Output 08/07 1600 08/07 0800 08/07 0000 Intake Total 450 240 Output Total 500 Balance -50 240 Intake, IV 390 Intake, Oral 60 240 Number 0 Bowel Movements Output, Urine 500 Physical Exam Other Physical Findings: He appears comfortable in no acute distress Extremities left foot dressing intact Results Last 24 Hours of Lab Results: No labs from today Last 24 Hours of [place] Results: No new cultures Assessment/Plan ID Impression: Stable, with temperatures and white blood cell count remaining normal, on Vancomycin, Flagyl and Ceftazidime for a residual soft tissue infection of the left foot now 1 week status post further debridement (of the soft tissues) and wound closure, now 9 days status post post amputation of the left second toe for a polymicrobial osteomyelitis, with no residual osteomyelitis felt to be present. Suggestion: 1. Discontinue Vancomycin, Flagyl and Ceftazidime and follow off antibiotics
[2017-08-07] MEDS ORDERED: LANTUS SOL100 UNIT/1 SC (11:05)
--- NOTE | 2017-08-07 15:21 | PN- Diabetes ---
Assessment/Plan Diabetes Assessment: Mr. Mathis is a 61-year-old male with past medical history of coronary artery disease status post [place] and stents in 2002, diabetes mellitus type 2 complicated by diabetic peripheral neuropathy and diabetic foot infection and primary hyperparathyroidism s/p parathyroid surgery, was admitted for left foot infection and underwent left 2nd toe amputation. He went to OR again on 2017. Levemir was increased to 28 units twice a day; Novolog coverage before meals was adjusted again on 08/05/2017. In addition, he is on Novolog coverage at bedtime. His FSGs were 98, 199, 121, 212 and 192. He is going to be discharged home today and he would like to continue taking insulin via VGO-40 device. Plan: Discharge plan for DM: 1. VGO-40 with bolus of insulin 12 units before each meal x 3 times a day; 2. additional Lantus 15 units daily; 3. monitor FSGs. 4. f/u in office after discharge. Subjective Subjective: He feels well this morning. Objective Last 24 Hrs of Vital Signs/I&O Vital Signs Date Time Temp Pulse Resp B/P B/P Pulse O2 O2 Flow FiO2 Mean Ox Delivery Rate 08/07 0915 78 134/82 08/07 0915 78 134/82 08/07 0616 98.4 72 20 128/78 95 Room Air 08/06 2200 20 08/06 2142 98.4 77 148/76 98 Room Air Intake & Output 08/07 1600 08/07 0800 08/07 0000 Intake Total 450 240 Output Total 500 Balance -50 240 Intake, IV 390 Intake, Oral 60 240 Number 0 Bowel Movements Output, Urine 500
== END 2017-08-07 11:28 | DRG 464 ==
LOC: ERH 13:23 → ER-OR 13:37 → 2NB 18:42 → PACUH 18:42 → ENRESERV 19:34 → ENTRNSPT 19:47 → EDTRNSPTSTS 20:08 → EDTRNSPT 20:08 → 2NB 20:12 → CMPTRNSPT 20:30 → 2NB 07-30 09:11 → ENTRNSPT 07-31 15:38 → EDTRNSPTSTS 07-31 15:54 → EDTRNSPT 07-31 15:54 → CMPTRNSPT 07-31 16:17 → ENPENDDIS 08-07 09:09 → ENTRNSPT 08-07 11:23 → 2NB 08-07 11:28 → CMPTRNSPT 08-07 11:29
PROVIDERS: Dermatology; Emergency Medicine; Student in an Organized Health Care Education/Training Program
PROC: 0JBR0ZZ Excision of Left Foot Subcutaneous Tissue and Fascia, Open Approach (ICD-10-PCS; principal; 2017-07-29)
PROC: 0Y6S0Z0 Detachment at Left 2nd Toe, Complete, Open Approach (ICD-10-PCS; principal; 2017-07-29)
PROC: 0JBR0ZX Excision of Left Foot Subcutaneous Tissue and Fascia, Open Approach, Diagnostic (ICD-10-PCS; 2017-07-31)
PROC: 0JXR0ZZ Transfer Left Foot Subcutaneous Tissue and Fascia, Open Approach (ICD-10-PCS; 2017-07-31)
DX: M86.172 Other acute osteomyelitis, left ankle and foot (principal); I96 Gangrene, not elsewhere classified; E11.22 Type 2 diabetes mellitus with diabetic chronic kidney disease; E11.52 Type 2 diabetes mellitus with diabetic peripheral angiopathy with gangrene; E11.69 Type 2 diabetes mellitus with other specified complication; E11.42 Type 2 diabetes mellitus with diabetic polyneuropathy; B95.62 Methicillin resistant Staphylococcus aureus infection as the cause of diseases classified elsewhere; B96.5 Pseudomonas (aeruginosa) (mallei) (pseudomallei) as the cause of diseases classified elsewhere; E11.40 Type 2 diabetes mellitus with diabetic neuropathy, unspecified; B95.3 Streptococcus pneumoniae as the cause of diseases classified elsewhere; I25.10 Atherosclerotic heart disease of native coronary artery without angina pectoris; I25.2 Old myocardial infarction; Z98.61 Coronary angioplasty status; E21.3 Hyperparathyroidism, unspecified; E11.65 Type 2 diabetes mellitus with hyperglycemia; Z87.891 Personal history of nicotine dependence; Z79.82 Long term (current) use of aspirin; Z79.4 Long term (current) use of insulin; E78.5 Hyperlipidemia, unspecified; Z89.421 Acquired absence of other right toe(s); Z89.412 Acquired absence of left great toe; D47.3 Essential (hemorrhagic) thrombocythemia; N40.0 Benign prostatic hyperplasia without lower urinary tract symptoms; I12.9 Hypertensive chronic kidney disease with stage 1 through stage 4 chronic kidney disease, or unspecified chronic kidney disease; N18.9 Chronic kidney disease, unspecified; E89.0 Postprocedural hypothyroidism
CPT/HCPCS: 2NBP; 87070; 87075; 87184; 36415; 36592; 73620-LT; 73620-RT; 73630-LT; 82436; 87071; 87147; 88305; 93005; 93010; J0713; J1644; J1815; J2001; J2250; J2543; J3010; J3370; J7040; J7042; J7060

== ENCOUNTER → 2018-01-14 | Day surgery (SDC) | payer OTHER ==
[~2018-01-14] VITALS: Ht 175.3 cm; Wt 98.4 kg
--- NOTE | 2018-01-14 07:32 | History & Physical Pre-Op ---
General Information and HPI History of Present Illness: Beny is a 8-year-old male with a long-standing and with complaint of a nonhealing ulcer to the plantar aspect of his right foot. Of note, the patient is status post partial first and second ray resections. Patient is noted to have bony regrowth with an associated nonhealing ulcer. Patient has failed an extended course of conservative care, including total contact casting and local intensive wound care. The patient presents today for preoperative surgical consultation. Allergies/Medications Allergies: Coded Allergies: NO KNOWN ALLERGIES (UNKNOWN 01/29/17) Home Med list Aspirin (Ecotrin*) 81 MG TABLET.DR 1 TAB PO DAILY HEART HEALTH (Reported) Cholecalciferol (Vitamin D3) (Vitamin D) 2,000 UNIT CAPSULE 1 CAP PO DAILY SUPPLEMENT (Reported) Fosinopril Sodium 40 MG TABLET 1 TAB PO DAILY BP (Reported) Gabapentin 400 MG CAPSULE 1 CAP PO TID NERVE PAIN (Reported) Insulin Glargine,Hum.rec.anlog (Lantus Solostar) 100 UNIT/ML (3 ML) INSULN.PEN 15 UNIT SC QPM diabetes Insulin Lispro (Humalog) 100 UNIT/ML CARTRIDGE INSULIN PUMP- VGO (Reported) Metoprolol Tartrate (Lopressor) 50 MG TABLET 1 TAB PO DAILY HEART/BP ( Reported) Oxycodone HCl/Acetaminophen (Percocet 5-325 MG Tablet) 5 MG-325 MG TABLET 1 TAB PO Q4-6 PRN postop pain Pravastatin Sodium 80 MG TABLET 1 TAB PO DAILY HEART HEALTH (Reported) Tamsulosin HCl (Flomax) 0.4 MG CAP.ER.24H 1 CAP PO DAILY URINARY DIFFICULTY ( Reported) Past History Medical History Neurological: peripheral neuropathy EENT: NONE Cardiovascular: CAD (status post stents), hypertension, hyperlipidemia, myocardial infarction, STENTS Respiratory: NONE Gastrointestinal: NONE Hepatic: NONE Renal: NONE Musculoskeletal: osteomyelitis of right 1st, 2nd and 3rd toes OTOEMYLITIS OF L 1ST TOE Psychiatric: NONE Endocrine: diabetes Cancer(s): NONE SORT WORKER/Reproductive: NONE History of MRSA: Yes History of VRE: No History of CDIFF: No Surgical History Pertinent Surgical History: right 1st, 2nd and 3rd toe amputations L FOOT 1ST TOE AMP LASER EYE SURGERY status post 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 Ambulation: independent IADLs Independent: shopping, housework, finances, food prep, telephone, transportation , medication admin. Review of Systems Review of Systems: Unremarkable except for that noted in history of present illness Exam & Diagnostic Data Physical Exam: Lungs clear bilaterally. Heart sounds rate and rhythm regular. Lower extremity physical exam demonstrates intact pedal pulses bilaterally. The dorsalis pedis and posterior tibial arteries are palpable bilaterally. Patient noted to have a sensory deficit in a moccasin type distribution bilaterally.. Deep tendon reflexes are grossly intact. Nonhealing ulcer noted at the plantar aspect of the distal stump of the first ray right foot. Assessment/Plan Assessment/Plan: Nonhealing ulcer right foot. A lengthy discussion reviewing both surgical and conservative options above the patient at bedside the patient elected to go forward with surgery despite the risks. As Ranked By This Provider Problem List: 1. Arthritis of ankle, right Attending MD Review Statement Attending Statement Attending MD Statement: examined this patient
--- NOTE | 2018-01-14 10:21 | Operative Report ---
Operative/Inv Procedure Report Surgery Date: 01/14/18 Name of Procedure: 1 exostectomy right foot 2 intraoperative menstruation Carlo block anesthesia Pre-Operative Diagnosis: 1 painful exostosis right foot Post-Operative Diagnosis: The same Estimated Blood Loss: scant Surgeon/Shaper Setter: Nate Mcdonough DPM, DPM Anesthesia: moderate sedation, block Operative/Procedure Note Note: After obtaining informed consent the patient was brought to the operating room and placed on the operating table in the supine position. The patient was then securely fastened to the operating table utilizing a safety belt. After administration of IV sedation, 10 cc of 0.5% Marcaine plain was infiltrated about the patient's right ankle. A well-padded ankle tourniquet was placed about the patient's right lower extremity. 2 g of Ancef were delivered intravenously 1 dose. The right foot and ankle were then scrubbed, prepped and draped in the usual aseptic manner. The right lower extremity was elevated to exsanguinate the limb, which point the ankle tourniquet inflated 250 mmHg. Attention directed dorsal aspect of the right foot, where a 4 cm incision was made over the distal portion of the first metatarsal stump. Dissection was then carried down septations tissues. All vital neurovascular structures were identified and protected. The dissection then was then carried down to the periosteum was incised reflected. A sagittal bone saw was then utilized to remove the distal 2 cm of metatarsal stump. This was passed in the operative field and sent for pathologic inspection. The wound was then irrigated with copious amounts of normal sterile saline. The deep tissue was then reapproximated with 3-0 Vicryl and the skin edges reapproximated 3-0 nylon. The incision was dressed with Xeroform, 4 x 4's, Kerlix and Abraham wrap. Patient was noted to tolerate both procedure and anesthesia well and the patient was transported the operating room to recovery with vital signs stable.
== END ==
LOC: STS 01:14
DX: M89.9 Disorder of bone, unspecified (principal); E11.42 Type 2 diabetes mellitus with diabetic polyneuropathy; Z96.41 Presence of insulin pump (external) (internal); I25.10 Atherosclerotic heart disease of native coronary artery without angina pectoris; Z95.5 Presence of coronary angioplasty implant and graft; I25.2 Old myocardial infarction; Z89.421 Acquired absence of other right toe(s); Z22.322 Carrier or suspected carrier of Methicillin resistant Staphylococcus aureus
CPT/HCPCS: 93005; 93010; J0131; J0690; J1885; J2001; J2250